=== PATIENT | male | born 1930 | race Caucasian/White ===

== ENCOUNTER 2017-10-19 15:11 | Inpatient (IN) | payer MEDICARE ==
[~2017-10-19 15:11] MED LIST: ISOVUE-370 76%-LOCM 1 ML ONE
[2017-10-19] MEDS ORDERED: Acetaminophen 325 MG TAB ONE ×2 (15:29→20:00)
[2017-10-19 15:43] LABS: Hemoglobin 13.9 g/dL (14.0-18.0); Mean Corpuscular HGB CONC 32.5 g/dL (32.0-36.0); Mean Corpuscular Hemoglobin 30.9 pg (27.0-31.0); Mean Platelet Volume 7.8 fL (7.4-10.4); Platelet Count 249 thou/uL (130-400); RBC Distribution Width 12.5 % (11.5-14.5); White Blood Cell (WBC) Count 7.3 thou/uL (4.8-10.8)
--- NOTE | 2017-10-19 15:55 | RAD ---
PORTABLE CHEST: Date: 10/19/17 PROVIDED CLINICAL HISTORY: Shortness of breath and pneumonia. FINDINGS: Comparison is made with the examination performed 07/09/13. Cardiac and mediastinal silhouette is unchanged in appearance. Left subclavian cardiac pacing device and median sternotomy changes are again seen. Patchy air space disease may be present at each lung ba se. No pleural fluid or pneumothorax apparent. IMPRESSION: Questioned patchy air space disease at each lung base. Correlate with concerns for pneumonia. POS: [facility]
[2017-10-19 16:03] LABS: ALT (SGPT) 16 U/L (8-55); AST (SGOT) 23 U/L (5-34); Albumin 3.8 g/dL (3.4-4.8); Alkaline Phosphatase 82 U/L (40-150); Anion Gap 14 mmol/L (10-20); BUN (Urea Nitrogen) 15 mg/dL (8.4-25.7); Bilirubin, Total 0.8 mg/dL (0.2-1.2); Calc. Creatinine Clearance 0 mL/min (70-130); Calcium 9.6 mg/dL (7.8-10.44); Carbon Dioxide 28 mmol/L (23-31); Chloride 96 mmol/L (98-107); Estimated GFR-MDRD 55; Globulin 3.5 g/dL (2.4-3.5); Glucose 126 mg/dL (83-110); Potassium 3.9 mmol/L (3.5-5.1); Protein, Total 7.3 g/dL (5.8-8.1); Sodium 134 mmol/L (136-145)
[2017-10-19 16:05] LABS: Band 21 % (5-11); Eosinophils 2 % (0-10); Lymphocytes 6 % (21-51); MDiff Complete? YES; Monocytes 10 % (0-10); Neutrophil 58 % (42-75); PLT Morphology Comment Appears Adequate; RBC Morphology Normal; Reactive Lymphocytes 3 % (0-10)
--- NOTE | 2017-10-19 16:40 | CT ---
CT ABDOMEN AND PELVIS WITH IV CONTRAST: History: Fever. Left lower quadrant pain. FINDINGS: There are dependent changes in the lung bases. No free air or free fluid or lymphadenopathy seen in t he abdomen or pelvis. No calcified gallstones are noted. There are calcified granulomas in the liver and spleen. There are cysts in the kidneys, the largest is on the left measuring 4.7 cm. Vascular darline cifications are present without evidence of abdominal dilatation of the abdominal aorta. A moderate s ized hiatal hernia is noted. There is colonic diverticulosis without evidence of diverticulitis. Ther e are vascular calcifications without evidence of aneurysmal dilatation of the abdominal aorta.There are degenerative changes in the spine. A normal appearing appendix is present. IMPRESSION: 1. Granulomas in the liver and spleen. 2. Moderate size hiatal hernia. 3. Renal cysts. 4. Colonic diverticulosis without evidence of diverticulitis. POS: [facility]
[2017-10-19 16:58] LABS: Bilirubin Negative (Negative); Blood, Urine Negative (Negative); Clarity CLEAR (Clear); Glucose, Urine (Dipstick) Negative (Negative); Leukocyte Negative (Negative); Nitrite Negative (Negative); Protein, Urine (Dipstick) 100 mg/dL (Neg-Trace); pH, Urine 7.5 (5.0-9.0)
[2017-10-19 17:00] LABS: Bacteria/HPF None Seen HPF (None Seen); Hyaline Casts/LPF 0-3 HYALINE CAST LPF (0-3 Hyaline); RBC/HPF 0-3 HPF (0-3); Squamous Epithelial None Seen HPF (0-3); WBC/HPF 0-3 HPF (0-3)
[2017-10-19 17:02] LABS: Specific Gravity, Urine 1.047 (1.002-1.036)
[2017-10-19] MEDS ORDERED: Cefepime 2 GM/10 ML SYR ONE (17:13)
[2017-10-19 22:14] VITALS: BMI 31.6
[2017-10-19] MEDS ORDERED: Ondansetron ODT 4 MG TAB SL PRN (22:14)
[2017-10-19] MEDS ORDERED: Ondansetron HCl/PF 4 MG/2 ML Vial IVP PRN (22:14)
[2017-10-19] MEDS ORDERED: Benzonatate 100 MG CAP PO PRN (23:33)
[2017-10-19] MEDS ORDERED: Acetaminophen 325 MG TAB PO PRN (23:33)
[2017-10-19] MEDS ORDERED: guaiFENesin ER 600 MG TAB PO SCH (23:45)
[2017-10-20] MEDS ORDERED: Cefepime 1 GM in Syringe 10 ML SLOW IVP SCH (02:00)
[2017-10-20 05:01] LABS: Anion Gap 11 mmol/L (10-20); BUN (Urea Nitrogen) 15 mg/dL (8.4-25.7); Calc. Creatinine Clearance 58 mL/min (70-130); Calcium 8.9 mg/dL (7.8-10.44); Carbon Dioxide 28 mmol/L (23-31); Chloride 100 mmol/L (98-107); Estimated GFR-MDRD 73; Glucose 98 mg/dL (83-110); Potassium 3.6 mmol/L (3.5-5.1); Sodium 135 mmol/L (136-145)
[2017-10-20 05:10] LABS: Band 12 % (5-11); Eosinophils 3 % (0-10); Hemoglobin 12.5 g/dL (14.0-18.0); Lymphocytes 21 % (21-51); MDiff Complete? YES; Mean Corpuscular HGB CONC 32.3 g/dL (32.0-36.0); Mean Platelet Volume 7.9 fL (7.4-10.4); Metamyelocyte 1 % (0-0); Monocytes 6 % (0-10); Neutrophil 57 % (42-75); PLT Morphology Comment Appears Adequate; Platelet Count 197 thou/uL (130-400); RBC Distribution Width 12.6 % (11.5-14.5); Red Blood Cell (RBC) Count 4.02 mill/uL (4.70-6.10); White Blood Cell (WBC) Count 6.2 thou/uL (4.8-10.8)
--- NOTE | 2017-10-20 08:10 | HP ---
CHIEF COMPLAINT: Pneumonia with hypoxia. HISTORY OF PRESENT ILLNESS: The patient is an 87-year-old male who lives at home with sitters and zuleta s dementia. They noted that 1 week ago he was diagnosed with pneumonia which may have actually just been exacerbation of COPD because his only treatment at that time was prednisone. He did seem to imp rove until just recently when he began to have fever up to 102.8 at which time he also had some abdom inal pain. His shortness of breath and confusion were worse than usual and he was brought to the [facility] room for further evaluation. There he was noted to have bilateral infiltrates and his heart r ate was elevated, so he was admitted for further treatment. He does have an occasional cough, especi ally if he takes a deep breath, but denies hemoptysis or chest pain. REVIEW OF SYSTEMS: Per other historians say that he has not had any chills or malaise, but has had a fever. HEENT: There are no eye complaints with pain or discharge. No complaints of nose or oral lesions. NECK: Without pain or limited range of motion. CARDIOVASCULAR: Denies any chest pain or palpitations. RESPIRATORY: Respiratory ahn, he does have occasional cough, he is dyspneic. GI: He has some vague abdominal pain with decreased appetite. No vomiting or diarrhea noted. : No burning on urination, frequency or blood in urine or stool. MUSCULOSKELETAL: Denies any recent falls, injuries or pain in his joints. SKIN: No new lesions or rashes. NEUROLOGIC: His mentation has slightly worsened since this recent illness. His overall confusion zuleta s improved since starting on Namenda along with the Aricept. PAST MEDICAL HISTORY: Significant for hypertension, dementia, Alzheimer's type, COPD, dyslipidemia, GERD, carotid artery stenosis, chronic back pain. He has a history of prostate carcinoma. He has zuleta d sick sinus syndrome in the past with cardiac syncope and history of coronary artery disease. PAST SURGICAL HISTORY: Includes right carotid endarterectomy, 2 vessel coronary artery bypass graft, colonoscopy in 2005, left index finger amputation. PSYCHIATRIC HISTORY: There is psychiatric history with the onset of his Alzheimer dementia. SOCIAL HISTORY: Former smoker, has not smoked in some time, but he did smoke for 70 years. Lives wi th a family member. Recently discharged from [facility]. ALLERGIES: He has no known drug allergies. CURRENT MEDICATIONS: Prednisone 5 mg daily, Namenda 10 mg b.i.d., amlodipine 10 mg daily. PHYSICAL EXAMINATION: VITAL SIGNS: Blood pressure 177/101, pulse 112, respirations 32, temperature 102.8. Pain scale repo rts is 0 with O2 sat at 90 on 2 liters. GENERAL: This is a lethargic male who will respond. HEENT: Normocephalic and atraumatic. Pupils equal, round, and reactive to light with arcus senilis bilaterally. Nonicteric. Pupils with diminished reactivity at 2 mm bilaterally. Extraocular muscle s are intact. Nose clear. Pharynx clear. Membranes moist. NECK: Supple, trachea midline, no audible bruits. CHEST: Chest with faint rales bilaterally. HEART: Regular rate and rhythm without murmur. ABDOMEN: Distended due to air swallowing. Unable to appreciate organomegaly, it is tympanic. Nonte nder at the time. : Deferred. BACK: Normal range of motion. EXTREMITIES: Upper extremities without clubbing, cyanosis, or edema. Normal range of motion. Lower extremities also without clubbing, cyanosis, or edema. Sensation intact. Posterior tibial pulse no rmal. Pedal pulses are normal. NEURO: Neurologically, he is oriented to person and place, confused on time. Speech is clear. Gait and cerebellar function untested. On his mental status there is memory confusion. SKIN: No acute rashes or lesions. Good turgor. EKG shows sinus tachycardia with a pattern for left pulmonary artery disease. WBC 7.3, hemoglobin 13.9, hematocrit 42.8 with platelets at 249. Sodium 134, potassium 3.9, chloride 96, CO2 is 28, BUN 15, creatinine 1.24 with a GFR of 55, glucose 126. Liver functions normal. Urin alysis is unremarkable. Chest x-ray shows the aforementioned bilateral fluffy infiltrates. ASSESSMENT: 1. Bilateral healthcare associated pneumonia. 2. Alzheimer dementia. 3. History of coronary artery disease. 4. History of prostate cancer. 5. Hypertension. PLAN: The plan will be to resume normal medications, neb treatments q.i.d. and p.r.n., IV antibiotic s and serial reevaluation.
[2017-10-20] MEDS: guaiFENesin ER 600 MG TAB PO SCH ×2 (09:42→20:14)
[2017-10-20] MEDS: Amlodipine 10 MG TAB PO SCH (09:42)
[2017-10-20] MEDS: Cefepime 2 GM, Syringe 2.5 ML in Sodium Chloride 0.9% 10 ML SLOW IVP SCH ×2 (10:21→18:05)
[2017-10-20] MEDS: Donepezil HCl 10 MG TAB PO SCH (11:58)
[2017-10-20] MEDS: Atorvastatin Calcium 10 MG TAB PO SCH (20:15)
[2017-10-21] MEDS: Cefepime 2 GM, Syringe 2.5 ML in Sodium Chloride 0.9% 10 ML SLOW IVP SCH ×3 (01:57→18:36)
[2017-10-21 04:29] LABS: #Eosinphils 0.1 thou/uL (0.0-0.7); #Lymphocytes 0.6 thou/uL (1.20-3.40); #Neutrophils 4.6 thou/uL (1.40-6.50); %Basophils 0.7 % (0.0-1.0); %Eosinophils 2.4 % (0.0-10.0); %Lymphocytes 9.5 % (21.0-51.0); %Monocytes 14.9 % (0.0-10.0); %Neutrophils 72.5 % (42.0-75.0); Hemoglobin 12.2 g/dL (14.0-18.0); Mean Corpuscular HGB CONC 32.5 g/dL (32.0-36.0); Mean Corpuscular Volume 98.5 fl (80.0-94.0); Mean Platelet Volume 8.1 fL (7.4-10.4); Platelet Count 217 thou/uL (130-400); RBC Distribution Width 12.5 % (11.5-14.5); Red Blood Cell (RBC) Count 3.82 mill/uL (4.70-6.10); White Blood Cell (WBC) Count 6.4 thou/uL (4.8-10.8)
[2017-10-21 04:38] LABS: Anion Gap 14 mmol/L (10-20); BUN (Urea Nitrogen) 20 mg/dL (8.4-25.7); Calc. Creatinine Clearance 55 mL/min (70-130); Calcium 8.9 mg/dL (7.8-10.44); Carbon Dioxide 25 mmol/L (23-31); Chloride 102 mmol/L (98-107); Estimated GFR-MDRD 68; Glucose 107 mg/dL (83-110); Potassium 3.7 mmol/L (3.5-5.1); Sodium 137 mmol/L (136-145)
--- NOTE | 2017-10-21 08:28 | PRG ---
DATE OF SERVICE: 10/21/2017 SCOTTY Myrick-Tammy dictating for Shane Baker M.D. According to the sitter, the patient did not sleep at all last night. He has been scratching his arm s a lot. He will not leave his oxygen on. PHYSICAL EXAMINATION: GENERAL: Upon evaluation, he is awake and he is confused. VITAL SIGNS: His blood pressure is 133/60, pulse 100, respirations 18, he is afebrile. NECK: Supple with no JVP or carotid bruit. Carotids with good upstroke, no thyromegaly. COR: Regular rate and rhythm. CHEST: Scattered rhonchi. No wheezing. ABDOMEN: Soft, distended with normoactive bowel sounds. There is no bruit or organomegaly. EXTREMITIES: No edema or cyanosis. Palpable pedal pulses. SKIN: There is no evidence of ulcer, lesion, or rash. NEUROLOGIC: He is awake, but confused. LABORATORY DATA: CBC showed a white blood cell to be 6.4, H and H 12.2 and 37.6, platelet count is n ormal. CMP is normal. Urine is normal. ASSESSMENT: 1. Chronic obstructive pulmonary disease. 2. Pneumonia. 3. Dementia. 4. Urticaria. PLAN: We will give Benadryl p.r.n. for itching. We will also start Solu-Medrol 40 mg IV q.12 hours and follow up with CBC, CMP, and chest x-ray in the morning.
[2017-10-21] MEDS: Amlodipine 10 MG TAB PO SCH (10:08)
[2017-10-21] MEDS: diphenhydrAMINE 25 MG CAP PO PRN ×2 (10:08→20:01)
[2017-10-21] MEDS: guaiFENesin ER 600 MG TAB PO SCH ×3 (10:08→20:02)
[2017-10-21] MEDS: Donepezil HCl 10 MG TAB PO SCH (12:45)
--- NOTE | 2017-10-21 14:30 | PQF ---
CLINICAL DOCUMENTATION IMPROVEMENT CLARIFICATION FORM: ICD-10 Updated PLEASE DO AN ADDENDUM TO THE PROGRESS NOTE WITH ANY DOCUMENTATION UPDATES OR ADDITIONS AND CARRY THROUGH TO DC SUMMARY. THANK YOU. DATE: 10/21/17 ATTN: Dr. Baker Please exercise your independent, professional judgment in responding to the clarification form. Clinical indicators are provided on the bottom of this form for your review Please check appropriate box(s): [ X ] Aspiration Pneumonia [ ] Empirically treating Gram Negative Pneumonia [ ] Empirically treating Anaerobic Pneumonia [ ] Pneumonia secondary to (specify organism / underlying disease) [ ] Simple Pneumonia (community acquired - nosocomial) [ ] Pneumonia of unknown etiology [ X ] Other diagnosis ___HEALTH CARE ASSO [ ] Unable to determine In addition, please specify: Present on Admission (POA): [ X ] Yes [ ] No [ ] Unable to determine For continuity of documentation, please document condition throughout progress notes and discharge summary. Thank You. CLINICAL INDICATORS - SIGNS / SYMPTOMS / LABS H&P: BP 177/101, PULSE 112, RESP. 32, [id number], O2 SAT @ 90 ON 2 LITERS. CHEST X-RAY SHOWS THE AFOREMENTIONED BILATERAL FLUFFY INFILTRATES BILATERAL HEALTHCARE ASSOCIATED PNEUMONIA. RISKS: H&P: HYPERTENSION, DEMENTIA, ALZHEIMER'S TYPE, COPD. CAD. RECENTLY DISCHARGED FROM [facility]. TREATMENT: ORDER 10/20: CEFEPIME 2 GM IV , ORDER 3: LEVAQUIN 500MG IV Q 24 HR ORDER 10/20: RESP: O2 TO KEEP SATS 92% Thank you, Shirlene (This form is maintained as a part of the permanent medical record) 2015 [employer]. All Rights Reserved Shirlene Branch RN, BSN [email or web address] Office: [phone] [facility]
--- NOTE | 2017-10-21 15:02 | PQF ---
CLINICAL DOCUMENTATION IMPROVEMENT CLARIFICATION FORM: ICD-10 Updated PLEASE DO AN ADDENDUM TO THE PROGRESS NOTE WITH ANY DOCUMENTATION UPDATES OR ADDITIONS AND CARRY THROUGH TO DC SUMMARY. THANK YOU. DATE: 10/21/17 ATTN: Dr. Baker Please exercise your independent, professional judgment in responding to the clarification form. Clinical indicators are provided on the bottom of this form for your review Please check appropriate box(s): [ ] Acute Respiratory Failure: [ ] with Hypoxia [ ] with Hypercapnia [ ] Acute On Chronic Respiratory Failure: [ ] with Hypoxia [ ] with Hypercapnia [ x ] Acute Respiratory Failure due to: (etiology) __healthcare asso pneumonia__ [ ] Chronic Respiratory Failure only [ ] with Hypoxia [ ] with Hypercapnia [ ] Other diagnosis [ ] Unable to determine In addition, please specify: Present on Admission (POA): [ x ] Yes [ ] No [ ] Unable to determine For continuity of documentation, please document condition throughout progress notes and discharge summary. Thank You. CLINICAL INDICATORS - SIGNS / SYMPTOMS / LABS ER RECORD: RESP 32, O2 SAT 90 ON 2L OXYGEN, BP 177/101, P 112 RESP 28, O2 SAT 95 ON 2L OXYGEN RESPIRATORY THERAPIST NOTES 10/20: NEB [place] @ 0721: O2 SAT 92 NC 2L NEB [place] @ 1914: O2 SAT 91 ROOM AIR NURSING VS 10/21 @ 0800: O2 SAT 90 NC 2L RISKS: H&P: AGE 87. HYPERTENSION, DEMENTIA, ALZHEIMER'S TYPE, COPD. CAD. BILATERAL HEALTHCARE ASSOCIATED PNEUMONIA. TREATMENT: ORDER 10/19: DUONEB Q4 HR - RT ORDER 10/20: RESP: O2 TO KEEP SATS 92% ORDER 10/21: SOLU-MEDROL 40 MG IV Thank you, Shirlene (This form is maintained as a part of the permanent medical record) 2015 [employer]. All Rights Reserved Shirlene Branch RN, BSN [email or web address] Office: [phone] [facility]
[2017-10-21] MEDS ORDERED: Polyethylene Glycol 3350 17 GM Packet PO PRN (16:51)
[2017-10-21] MEDS: Atorvastatin Calcium 10 MG TAB PO SCH (20:02)
[2017-10-22] MEDS: Cefepime 2 GM, Syringe 2.5 ML in Sodium Chloride 0.9% 10 ML SLOW IVP SCH (01:06)
[2017-10-22 05:29] LABS: Hemoglobin 11.9 g/dL (14.0-18.0); Red Blood Cell (RBC) Count 3.73 mill/uL (4.70-6.10); White Blood Cell (WBC) Count 6.2 thou/uL (4.8-10.8)
[2017-10-22 05:30] LABS: #Basophils 0.1 thou/uL (0.0-0.2); #Lymphocytes 0.3 thou/uL (1.20-3.40); #Monocytes 0.1 thou/uL (0.11-0.59); #Neutrophils 5.7 thou/uL (1.40-6.50); %Basophils 1.5 % (0.0-1.0); %Eosinophils 0.2 % (0.0-10.0); %Lymphocytes 4.4 % (21.0-51.0); %Monocytes 2.1 % (0.0-10.0); %Neutrophils 91.8 % (42.0-75.0); Mean Corpuscular HGB CONC 32.2 g/dL (32.0-36.0); Mean Corpuscular Hemoglobin 31.8 pg (27.0-31.0); Mean Corpuscular Volume 98.6 fl (80.0-94.0); Mean Platelet Volume 8.5 fL (7.4-10.4); Platelet Count 226 thou/uL (130-400); RBC Distribution Width 12.6 % (11.5-14.5)
[2017-10-22 05:56] LABS: ALT (SGPT) 19 U/L (8-55); AST (SGOT) 27 U/L (5-34); Albumin 3.3 g/dL (3.4-4.8); Alkaline Phosphatase 72 U/L (40-150); Anion Gap 15 mmol/L (10-20); BUN (Urea Nitrogen) 29 mg/dL (8.4-25.7); Bilirubin, Total 0.3 mg/dL (0.2-1.2); Calc. Creatinine Clearance 54 mL/min (70-130); Calcium 9.4 mg/dL (7.8-10.44); Carbon Dioxide 24 mmol/L (23-31); Chloride 103 mmol/L (98-107); Estimated GFR-MDRD 67; Globulin 3.2 g/dL (2.4-3.5); Glucose 172 mg/dL (83-110); Potassium 4.6 mmol/L (3.5-5.1); Protein, Total 6.5 g/dL (5.8-8.1); Sodium 137 mmol/L (136-145)
[2017-10-22] MEDS: predniSONE 20 MG TAB PO SCH ×2 (08:30→16:03)
[2017-10-22] MEDS: Cefdinir 300 MG CAP PO SCH ×2 (08:30→21:05)
[2017-10-22] MEDS: Amlodipine 10 MG TAB PO SCH (08:30)
[2017-10-22] MEDS: guaiFENesin ER 600 MG TAB PO SCH ×2 (08:31→21:06)
--- NOTE | 2017-10-22 09:07 | RAD ---
CHEST TWO VIEWS: History: Pneumonia. Comparison: 10-19-17 FINDINGS: Cardiac silhouette and pulmonary vasculature are unremarkable. Patchy bibasilar infiltrates have impr abhijeet. Mediastinum is midline with aortic calcification, post-operative changes, dual-lead left subcla vian cardiac electronic device, and hiatal hernia. Lungs are hyperinflated. IMPRESSION: 1. Improved aeration of the lung bases with near complete resolution of the infiltrates. No new abnor malities are demonstrated. 2. Chronic type findings are stable. POS: [facility]
[2017-10-22] MEDS: Donepezil HCl 10 MG TAB PO SCH (11:12)
[2017-10-22] MEDS: Atorvastatin Calcium 10 MG TAB PO SCH (21:05)
[2017-10-22] MEDS: diphenhydrAMINE 25 MG CAP PO PRN (22:46)
[2017-10-23] MEDS ORDERED: Zolpidem Tartrate 5 MG TAB PO SCH (00:15)
[2017-10-23 05:49] LABS: Anion Gap 13 mmol/L (10-20); BUN (Urea Nitrogen) 44 mg/dL (8.4-25.7); Calc. Creatinine Clearance 56 mL/min (70-130); Calcium 9.6 mg/dL (7.8-10.44); Carbon Dioxide 26 mmol/L (23-31); Chloride 103 mmol/L (98-107); Estimated GFR-MDRD 70; Glucose 131 mg/dL (83-110); Potassium 4.5 mmol/L (3.5-5.1); Sodium 137 mmol/L (136-145)
[2017-10-23 06:45] LABS: Band 14 % (5-11); Hemoglobin 11.3 g/dL (14.0-18.0); Lymphocytes 5 % (21-51); MDiff Complete? YES; Mean Corpuscular HGB CONC 31.1 g/dL (32.0-36.0); Mean Corpuscular Volume 96.4 fl (80.0-94.0); Mean Platelet Volume 8.2 fL (7.4-10.4); Monocytes 12 % (0-10); Neutrophil 69 % (42-75); Platelet Count 231 thou/uL (130-400); RBC Distribution Width 12.5 % (11.5-14.5); Red Blood Cell (RBC) Count 3.78 mill/uL (4.70-6.10); White Blood Cell (WBC) Count 13.3 thou/uL (4.8-10.8)
[2017-10-23] MEDS: Amlodipine 10 MG TAB PO SCH (09:43)
[2017-10-23] MEDS: predniSONE 5 MG TAB PO SCH ×2 (09:45→21:46)
[2017-10-23] MEDS: predniSONE 20 MG TAB PO SCH ×2 (09:45→17:12)
[2017-10-23] MEDS: guaiFENesin ER 600 MG TAB PO SCH ×2 (09:45→21:46)
[2017-10-23] MEDS: Cefepime 1 GM, Admixture Fee 1 EACH in Sodium Chloride 0.9% 10 ML SLOW IVP SCH ×2 (09:50→17:12)
[2017-10-23] MEDS: Donepezil HCl 10 MG TAB PO SCH (13:03)
[2017-10-23] MEDS: Atorvastatin Calcium 10 MG TAB PO SCH (21:46)
[2017-10-24] MEDS: Cefepime 1 GM, Admixture Fee 1 EACH in Sodium Chloride 0.9% 10 ML SLOW IVP SCH ×3 (00:34→16:30)
[2017-10-24 05:18] LABS: Anion Gap 13 mmol/L (10-20); BUN (Urea Nitrogen) 45 mg/dL (8.4-25.7); Calc. Creatinine Clearance 49 mL/min (70-130); Calcium 9.6 mg/dL (7.8-10.44); Carbon Dioxide 27 mmol/L (23-31); Chloride 103 mmol/L (98-107); Estimated GFR-MDRD 64; Glucose 147 mg/dL (83-110); Potassium 4.5 mmol/L (3.5-5.1); Sodium 138 mmol/L (136-145)
[2017-10-24 05:25] LABS: Band 2 % (5-11); Hemoglobin 11.2 g/dL (14.0-18.0); Lymphocytes 5 % (21-51); MDiff Complete? YES; Mean Corpuscular HGB CONC 32.4 g/dL (32.0-36.0); Mean Corpuscular Volume 95.9 fl (80.0-94.0); Mean Platelet Volume 8.3 fL (7.4-10.4); Metamyelocyte 1 % (0-0); Monocytes 6 % (0-10); Myelocyte 3 % (0-0); Neutrophil 83 % (42-75); Platelet Count 223 thou/uL (130-400); RBC Distribution Width 12.6 % (11.5-14.5); Red Blood Cell (RBC) Count 3.61 mill/uL (4.70-6.10); White Blood Cell (WBC) Count 13.8 thou/uL (4.8-10.8)
[2017-10-24] MEDS: Amlodipine 10 MG TAB PO SCH (08:41)
[2017-10-24] MEDS: guaiFENesin ER 600 MG TAB PO SCH ×2 (08:41→20:17)
[2017-10-24] MEDS: predniSONE 5 MG TAB PO SCH ×2 (08:41→20:17)
[2017-10-24] MEDS: predniSONE 20 MG TAB PO SCH ×2 (08:41→16:30)
[2017-10-24] MEDS: Donepezil HCl 10 MG TAB PO SCH (11:53)
--- NOTE | 2017-10-24 13:21 | RAD ---
CHEST TWO VIEWS: COMPARISON: 10/22/2017 FINDINGS: Heart size is slightly enlarged. There are postop sternotomy changes. A pacemaker is present. Heat Pump Installer rich lung changes are seen. No focal infiltrates. IMPRESSION: Mild cardiomegaly with chronic lung change. No acute process. POS: [facility]
[2017-10-24] MEDS: Atorvastatin Calcium 10 MG TAB PO SCH (20:17)
[2017-10-25] MEDS: Cefepime 1 GM, Admixture Fee 1 EACH in Sodium Chloride 0.9% 10 ML SLOW IVP SCH ×2 (00:12→08:31)
[2017-10-25 05:15] LABS: Anion Gap 13 mmol/L (10-20); BUN (Urea Nitrogen) 44 mg/dL (8.4-25.7); Calc. Creatinine Clearance 52 mL/min (70-130); Calcium 9.6 mg/dL (7.8-10.44); Carbon Dioxide 28 mmol/L (23-31); Chloride 103 mmol/L (98-107); Estimated GFR-MDRD 68; Glucose 160 mg/dL (83-110); Potassium 4.5 mmol/L (3.5-5.1); Sodium 139 mmol/L (136-145)
[2017-10-25 06:42] LABS: Band 7 % (5-11); Hemoglobin 11.7 g/dL (14.0-18.0); Lymphocytes 12 % (21-51); MDiff Complete? YES; Mean Corpuscular HGB CONC 32.2 g/dL (32.0-36.0); Mean Corpuscular Hemoglobin 31.5 pg (27.0-31.0); Mean Corpuscular Volume 97.8 fl (80.0-94.0); Mean Platelet Volume 8.4 fL (7.4-10.4); Metamyelocyte 1 % (0-0); Monocytes 5 % (0-10); Myelocyte 2 % (0-0); Neutrophil 73 % (42-75); Platelet Count 231 thou/uL (130-400); RBC Distribution Width 12.7 % (11.5-14.5); White Blood Cell (WBC) Count 15.3 thou/uL (4.8-10.8)
[2017-10-25] MEDS: predniSONE 5 MG TAB PO SCH (08:31)
[2017-10-25] MEDS: Amlodipine 10 MG TAB PO SCH (08:31)
[2017-10-25] MEDS: guaiFENesin ER 600 MG TAB PO SCH (08:32)
[2017-10-25] MEDS: predniSONE 20 MG TAB PO SCH (08:32)
--- NOTE | 2017-10-25 09:46 | PDOC.PN ---
- Subjective Encounter Start Date: 10/25/17 Encounter Start Time: 10:50 Subjective: Patient feeling better. Still with some chest congestion, but breathin -: fine on his home O2. - Objective MAR Reviewed: Yes Vital Signs & Weight: Vital Signs (12 hours) Temp Pulse Resp BP BP Pulse Ox 10/25/17 08:31 91 131/65 10/25/17 08:00 98 F 91 16 131/65 94 L 10/25/17 07:49 97 10/25/17 07:44 89 20 97 10/25/17 04:34 98.0 F 53 L 18 177/77 H 93 L 10/25/17 03:04 93 L 10/25/17 00:10 98.6 F 106 H 18 141/86 H 94 L 10/24/17 22:05 16 Weight Weight 163 lb 12.8 oz I&O: 10/24/17 10/25/17 10/26/17 06:59 06:59 06:59 Intake Total 1140 1075 Balance 1140 1075 Result Diagrams: 10/25/17 04:31 10/25/17 04:31 Phys Exam - Physical Examination Constitutional: NAD HEENT: moist MMs Respiratory: no wheezing, no rales, no rhonchi some upper airway congestive noises, no increased WOB, good air mvmnt Cardiovascular: RRR Gastrointestinal: soft, positive bowel sounds Musculoskeletal: no edema Psychiatric: normal affect Dx/Plan (1) Pneumonia Code(s): J18.9 - PNEUMONIA, UNSPECIFIED ORGANISM Status: Resolved Comment: CXR infiltrates resolved, suspect possibility of atelecasis as source. (2) COPD exacerbation Code(s): J44.1 - CHRONIC OBSTRUCTIVE PULMONARY DISEASE W (ACUTE) EXACERBATION Status: Acute Comment: Improved with IV steroids, no on po (3) Leukocytosis Code(s): D72.829 - ELEVATED WHITE BLOOD CELL COUNT, UNSPECIFIED Status: Acute Comment: bandemia resolved, spike appears to coincide with increased dose of steroids. No fever. Blood cultures negative. - Plan cont current plan of care, continue antibiotics Can d/c home on oral Levaquin and prednisone * . - Discharge Day Encounter end time: 11:05
[2017-10-25 11:47] VITALS: BP 137/63; TEMP 97.9
[2017-10-25] MEDS: Donepezil HCl 10 MG TAB PO SCH (11:57)
--- NOTE | 2017-10-25 14:22 | DIS ---
PRIMARY CARE PHYSICIAN: Dr. Shane Baker. ADMISSION DIAGNOSES: 1. Bilateral healthcare-associated pneumonia. 2. Alzheimer dementia. 3. Coronary artery disease. 4. History of prostate cancer. 5. Hypertension. DISCHARGE DIAGNOSES: 1. Pneumonia, resolved. 2. Chronic obstructive pulmonary disease exacerbation. 3. Leukocytosis secondary to steroids. 4. Alzheimer's dementia. 5. History of coronary artery disease. 6. History of prostate cancer. 7. Hypertension. PROCEDURES: CT of the abdomen and pelvis with contrast showing granulomas of the liver and spleen, m oderate-size hiatal hernia, renal cysts and colonic diverticulosis without any evidence of diverticul itis. CONSULTATIONS: None. SUMMARY OF HOSPITAL COURSE: This is an 87-year-old white male with history of dementia, who lives at home with sitters. He was admitted by Dr. Baker on 10/19/2017 after developing a fever at home concepción g with evidence of worsening of his COPD. He was thought to have bilateral mild lower lung infiltrat es on chest x-ray, was admitted to the hospital and given IV antibiotics. The patient improved durin g his hospitalization. He did have his steroids increased a couple of days into the hospitalization. At that point, his white cell count did start to elevate, initially had a bandemia, but bandemia le veled out and his white cell count was stable at 15 the day of discharge. Patient's blood cultures c makayla back negative. Urine culture was negative. Influenza A and B were negative. He is being discha rged home. DISCHARGE MANAGEMENT: Discharged home back with his previous home health. ACTIVITY: As tolerated. DIET: Healthy heart, low sodium diet. He is to continue his home oxygen at 2 liters via nasal cannula. The patient is to follow up with Dr Vince Baker in the next 3-5 days. DISCHARGE MEDICATIONS: 1. Tessalon Perles 100 mg every 6 hours as needed for cough, 30 caps dispensed. 2. Guaifenesin ER 1200 mg q.12 hours as needed for chest congestion, 60 tablets dispensed. 3. Levofloxacin 500 mg p.o. daily for another 2 days, 2 tablets dispensed. 4. Prednisone 10 mg p.o. twice a day for next 3 days and then he is to go back to his home dose of 5 mg daily. The patient is to resume all of his other home medications as well. 5. Amlodipine 10 mg daily. 6. Aspirin 81 mg daily. 7. Aricept 10 mg daily. 8. Milk of magnesia as needed. 9. Namenda 10 mg twice a day. 10. Centrum Silver 1 tablet daily. 11. MiraLax 119 grams p.o. daily. 12. Zocor 20 mg at night. 13. Symbicort 160/4.5 one puff twice a day. 14. Carvedilol 3.125 mg twice a day.
== END 2017-10-25 13:12 | disposition home health service (06) | DRG 177 ==
LOC: ERS 15:11 → 2SE 20:00
PROVIDERS: ADMIT Specialist; ATTEND Specialist
DX: J69.0 Pneumonitis due to inhalation of food and vomit (principal); J96.00 Acute respiratory failure, unspecified whether with hypoxia or hypercapnia; G30.9 Alzheimer's disease, unspecified; F02.80 Dementia in other diseases classified elsewhere, unspecified severity, without behavioral disturbance, psychotic disturbance, mood disturbance, and anxiety; Z87.891 Personal history of nicotine dependence; J44.9 Chronic obstructive pulmonary disease, unspecified; E78.5 Hyperlipidemia, unspecified; K21.9 Gastro-esophageal reflux disease without esophagitis; I25.10 Atherosclerotic heart disease of native coronary artery without angina pectoris; Z95.1 Presence of aortocoronary bypass graft; L50.9 Urticaria, unspecified
CPT/HCPCS: 36415; 71045; 71046; 74177; 80048; 80053; 81003; 81015; 83605; 85025; 87040; 87086; 87804; 93005; 94640; 94760; 96365; 96366; 96374; A4216; J0692; J1956; J2920; J7506; J7620

== ENCOUNTER 2017-11-20 19:07 | Emergency (ER) | payer MEDICARE ==
[2017-11-20 19:43] LABS: #Basophils 0.1 thou/uL (0.0-0.2); #Eosinphils 0.3 thou/uL (0.0-0.7); #Lymphocytes 2.2 thou/uL (1.20-3.40); #Monocytes 0.9 thou/uL (0.11-0.59); #Neutrophils 5.2 thou/uL (1.40-6.50); %Basophils 0.6 % (0.0-1.0); %Eosinophils 3.8 % (0.0-10.0); %Monocytes 10.5 % (0.0-10.0); %Neutrophils 60.2 % (42.0-75.0); Hemoglobin 11.5 g/dL (14.0-18.0); Mean Corpuscular Hemoglobin 29.2 pg (27.0-31.0); Mean Corpuscular Volume 94.3 fl (80.0-94.0); Mean Platelet Volume 7.5 fL (7.4-10.4); Platelet Count 294 thou/uL (130-400); RBC Distribution Width 13.6 % (11.5-14.5); Red Blood Cell (RBC) Count 3.94 mill/uL (4.70-6.10); White Blood Cell (WBC) Count 8.7 thou/uL (4.8-10.8)
[2017-11-20 20:01] LABS: Anion Gap 13 mmol/L (10-20); BUN (Urea Nitrogen) 19 mg/dL (8.4-25.7); Calc. Creatinine Clearance 0 mL/min (70-130); Calcium 8.9 mg/dL (7.8-10.44); Carbon Dioxide 28 mmol/L (23-31); Chloride 103 mmol/L (98-107); Estimated GFR-MDRD 64; Glucose 124 mg/dL (83-110); Potassium 3.8 mmol/L (3.5-5.1); Sodium 140 mmol/L (136-145)
[2017-11-20] MEDS ORDERED: methylPREDNISolone Sod Succ/PF 125 MG/2 ML VIAL ONE (20:14)
[2017-11-20 20:16] LABS: CKMB 0.6 ng/mL (0-6.6); Troponin I Less than 0.010 ng/mL (< 0.028)
[2017-11-20] MEDS ORDERED: Albuterol Sulfate 2.5 mg/3 ml Neb ONE (20:17)
--- NOTE | 2017-11-20 21:02 | RAD ---
FRONTAL VIEW CHEST: 11/20/17 COMPARISON: 10/24/17 CLINICAL INDICATION: Dyspnea. FINDINGS: There is prominent size of the cardiac silhouette, some of which is due to portable technique and ass ociated accentuation. Left sided cardiac pacing device remains. Redemonstration of postoperative find ings of sternotomy. No new consolidation or significant effusion identified. Osseous degenerative jyoti nge present. IMPRESSION: Prominent cardiac silhouette indicating CHF. Correlate clinically. POS: [facility]
[2017-11-21 09:52] LABS: Base Excess-Venous 5.3 mmol/L (0 (+/- 2.5)); Bicarbonate (HCO3v) 31.8 mmol/L (1.0-85.0); CO2 Tension (PvCO2) 54.2 mmHg (41.0-51.0); Calcium, Ionized 1.13 mmol/L (1.12-1.32); Hemoglobin - Calc 12.3 g/dL (12.0-18.0); O2 Tension (PvO2) 31.7 mmHg (35.0-45.0); Potassium 3.4 mmol/L (3.4-4.7); T. Carbon Dioxide 33.5 mmol/L (1.0-85.0); pH (Venous) 7.376 (7.35-7.45); vO2 Saturation-calc 57.8 % (94-98)
== END 2017-11-20 21:00 | disposition home or self-care (01) ==
LOC: ERS 19:07
DX: J44.1 Chronic obstructive pulmonary disease with (acute) exacerbation (principal); I10 Essential (primary) hypertension; G30.9 Alzheimer's disease, unspecified; F02.80 Dementia in other diseases classified elsewhere, unspecified severity, without behavioral disturbance, psychotic disturbance, mood disturbance, and anxiety; Z87.891 Personal history of nicotine dependence; Z79.52 Long term (current) use of systemic steroids; Z79.899 Other long term (current) drug therapy
CPT/HCPCS: 36415; 71045; 80048; 82330; 82435; 82553; 82803; 84132; 84295; 84484; 85014; 85025; 93005; 94640; 94760; 96374; J2930; J7611

== ENCOUNTER 2018-01-17 15:15 | Inpatient (IN) | payer MEDICARE ==
[2018-01-17] MEDS ORDERED: methylPREDNISolone Sod Succ/PF 125 MG/2 ML VIAL ONE (15:50)
[2018-01-17 15:54] LABS: Hemoglobin 11.6 g/dL (14.0-18.0); Mean Corpuscular HGB CONC 31.9 g/dL (32.0-36.0); Mean Corpuscular Hemoglobin 26.6 pg (27.0-31.0); Mean Corpuscular Volume 83.1 fl (80.0-94.0); Mean Platelet Volume 8.3 fL (7.4-10.4); Platelet Count 304 thou/uL (130-400); RBC Distribution Width 16.1 % (11.5-14.5); Red Blood Cell (RBC) Count 4.36 mill/uL (4.70-6.10); White Blood Cell (WBC) Count 26.2 thou/uL (4.8-10.8)
--- NOTE | 2018-01-17 15:59 | RAD ---
CHEST ONE VIEW: 01/17/18 HISTORY: Cough. COMPARISON: Chest radiograph 11/20/17. FINDINGS: There is a mild pulmonary venous congestion. Numerous calcified granulomas. No pneumothorax or large effusion. There is a left retrocardiac opacity which may reflect a sliding hiatal hernia. IMPRESSION: 1. Cardiomegaly with mild pulmonary venous congestion. 2. Sliding hiatal hernia. POS: [facility]
[2018-01-17 16:15] LABS: Anisocytosis SLIGHT = 6-15 cells (100X) (0-5/hpf); Lymphocytes 6 % (21-51); MDiff Complete? YES; Monocytes 2 % (0-10); Neutrophil 92 % (42-75); Ovalocytes SLIGHT = 2-5 cells (100X) (0-1/hpf); PLT Morphology Comment Appears Adequate; Polychromasia SLIGHT = 2-3 cells (100X) (0-2/hpf)
[2018-01-17 16:17] LABS: ALT (SGPT) 9 U/L (8-55); AST (SGOT) 15 U/L (5-34); Albumin 3.5 g/dL (3.4-4.8); Alkaline Phosphatase 77 U/L (40-150); Anion Gap 16 mmol/L (10-20); BUN (Urea Nitrogen) 19 mg/dL (8.4-25.7); Bilirubin, Total 0.6 mg/dL (0.2-1.2); Calc. Creatinine Clearance 0 mL/min (70-130); Carbon Dioxide 23 mmol/L (23-31); Chloride 102 mmol/L (98-107); Estimated GFR-MDRD 59; Globulin 2.9 g/dL (2.4-3.5); Glucose 116 mg/dL (83-110); Potassium 4.2 mmol/L (3.5-5.1); Protein, Total 6.4 g/dL (5.8-8.1); Sodium 137 mmol/L (136-145)
[2018-01-17 16:56] LABS: Bilirubin Negative (Negative); Blood, Urine Negative (Negative); Clarity CLEAR (Clear); Glucose, Urine (Dipstick) Negative (Negative); Leukocyte Negative (Negative); Nitrite Negative (Negative); Protein, Urine (Dipstick) Trace mg/dL (Neg-Trace); Specific Gravity, Urine 1.019 (1.002-1.036)
[2018-01-17] MEDS ORDERED: Azithromycin 500 MG VIAL ONE (17:22)
[2018-01-17] MEDS ORDERED: cefTRIAXone\\ROCEPHIN 1 GM VIAL ONE (17:22)
[2018-01-17] MEDS ORDERED: Ondansetron HCl/PF 4 MG/2 ML Vial IVP PRN (18:47)
[2018-01-17] MEDS ORDERED: Ondansetron ODT 4 MG TAB SL PRN (18:47)
[2018-01-17] MEDS ORDERED: Acetaminophen 325 MG TAB PO PRN ×2 (18:47→19:41)
[2018-01-17 18:58] VITALS: BMI 28.8
[2018-01-17] MEDS ORDERED: Mag-Al 1200 mg/1200 mg/30 ML UDCUP PO PRN (19:41)
[2018-01-17] MEDS ORDERED: Sodium Chloride 0.9% 1,000 ML IV SCH (19:41)
[2018-01-17] MEDS ORDERED: Benzonatate 100 MG CAP PO PRN (19:41)
[2018-01-17] MEDS ORDERED: hydrALAZINE 20 MG/ML VIAL SLOW IVP PRN (19:41)
[2018-01-17 19:49] LABS: Lactic Acid 1.3 mmol/L (0.5-2.2)
[2018-01-17] MEDS ORDERED: Mometasone/Formoterol 120 PUFF INHALER INH SCH (20:00)
[2018-01-17] MEDS ORDERED: VANCOMYCIN IVPB PRN (20:01)
--- NOTE | 2018-01-17 21:55 | HP ---
PRIMARY CARE PHYSICIAN: Dr. Shane Baker. CHIEF COMPLAINT: Cough and congestion and decreased oral intake. HISTORY OF PRESENT ILLNESS: This is very limited as the patient has advanced dementia and is unable to give me any history and the family members have since left. The patient is an 87-year-old gentlem an, who has a history of COPD and he was recently admitted to the hospital for pneumonia back in [place] of this year. He lives with family and they brought him in because he has been having decreased or al intake and has been having cough and congestion. He has generally not been feeling well and think s he may have a fever. They are concerned that he might have developed pneumonia again. In the ER, he was found to have a leukocytosis; however, his chest x-ray did not show any obvious infiltrate. H owever, with the congestion on exam as well as white count of 26,000 and an elevated lactic acid, he is being admitted. REVIEW OF SYSTEMS: Unobtainable due to the patient's advanced dementia. PAST MEDICAL HISTORY: Taken from a previous history and physical by Dr. Baker in October and includes hypertension, dementia, COPD, dyslipidemia, gastroesophageal reflux disease, chronic low back pain, p rostate cancer and history of sick sinus syndrome. PAST SURGICAL HISTORY: He has had a right carotid endarterectomy; coronary artery bypass grafting, 2 vessels; colonoscopy in 2005 and a finger amputation. ALLERGIES: No known drug allergies. SOCIAL HISTORY: He lives at home with family. He is a former smoker. He has smoked for at least 70 years prior to that. No history of alcohol use and he is a FULL CODE. FAMILY HISTORY: Unobtainable. MEDICATIONS: Taken from the records from the emergency room and include prednisone 10 mg daily, Name nda 10 mg twice a day, amlodipine 10 mg daily, DuoNeb 1 to 4 times a day as needed. PHYSICAL EXAMINATION: GENERAL: He is alert and oriented to person and place. He is well-developed and well-nourished. He appears to be in no acute distress. VITAL SIGNS: His blood pressure was 128/64, heart rate 119, respiratory rate of 24, temperature was 100.9, O2 sat was 95% on room air. HEENT: Pupils are equal, round, and reactive. Extraocular muscles are intact. His sclerae are anic teric. Throat: He has got dry mucous membranes, no oral lesions. NECK: There is no adenopathy, no bruits. LUNGS: He has got bilateral rhonchi as well as some rales at the bases and some mild expiratory whee ze. CARDIOVASCULAR: Heart sounds are slightly distant. He has a normal S1, S2. No S3 or S4. No murmur s, clicks or rubs. ABDOMEN: Obese, it is soft, nontender, nondistended. Positive for bowel sounds. No rebound, no gua rding. EXTREMITIES: There is no edema. NEUROLOGIC: The exam is nonfocal. LABORATORY DATA: White blood cell count 26.2, hemoglobin 11.6, hematocrit is 36.3, platelet count wa s 304. Sodium 137, potassium 4.2, chloride is 102, CO2 is 23, BUN of 19, creatinine 1.17, glucose is 116. Lactic acid was 3.7. Urinalysis was negative. ASSESSMENT AND PLAN: This is an 87-year-old gentleman that comes in with cough and congestion, leuko cytosis and fever. His chest x-ray is relatively clear; however, his lung sounds are quite congested . He does meet criteria for sepsis with the fever, elevated white blood cell count and lactic acid. The likely source is pulmonary. He will be admitted inpatient and since he has had a hospital stay within the last 90 days, we will treat him with more broad-spectrum antibiotics to consider healthcar e associated infection. He will continue neb treatments for COPD as well as supplemental oxygen. He will be placed on deep venous thrombosis and gastrointestinal prophylaxis and we will follow up on u rine and blood cultures and also trend his white blood cell count.
[2018-01-17] MEDS: Cefepime 1 GM in Sodium Chloride 0.9% 100 ML IVPB SCH (22:02)
[2018-01-17] MEDS: guaiFENesin ER 600 MG TAB PO SCH (22:16)
[2018-01-18 05:06] LABS: #Lymphocytes 0.5 thou/uL (1.20-3.40); #Monocytes 0.2 thou/uL (0.11-0.59); #Neutrophils 19.2 thou/uL (1.40-6.50); %Eosinophils 0.1 % (0.0-10.0); %Lymphocytes 2.7 % (21.0-51.0); %Monocytes 0.8 % (0.0-10.0); %Neutrophils 96.4 % (42.0-75.0); Hemoglobin 9.9 g/dL (14.0-18.0); Mean Corpuscular Volume 83.9 fl (80.0-94.0); Mean Platelet Volume 8.4 fL (7.4-10.4); Platelet Count 225 thou/uL (130-400); RBC Distribution Width 15.9 % (11.5-14.5); White Blood Cell (WBC) Count 19.9 thou/uL (4.8-10.8)
[2018-01-18 05:19] LABS: Anion Gap 11 mmol/L (10-20); BUN (Urea Nitrogen) 20 mg/dL (8.4-25.7); Calc. Creatinine Clearance 56 mL/min (70-130); Calcium 8.6 mg/dL (7.8-10.44); Carbon Dioxide 23 mmol/L (23-31); Chloride 106 mmol/L (98-107); Estimated GFR-MDRD 72; Glucose 161 mg/dL (83-110); Potassium 4.4 mmol/L (3.5-5.1); Sodium 136 mmol/L (136-145)
[2018-01-18] MEDS: Mometasone/Formoterol 120 PUFF INHALER INH SCH ×2 (06:48→19:04)
[2018-01-18] MEDS: Cefepime 1 GM in Sodium Chloride 0.9% 100 ML IVPB SCH ×2 (08:32→21:10)
[2018-01-18] MEDS: Amlodipine 10 MG TAB PO SCH (08:35)
[2018-01-18] MEDS: Enoxaparin Sodium 40 MG/0.4 ML SYRINGE SC SCH (08:35)
[2018-01-18] MEDS: guaiFENesin ER 600 MG TAB PO SCH ×2 (08:35→21:13)
[2018-01-18] MEDS: Polyethylene Glycol 3350 17 GM Packet PO SCH (08:36)
[2018-01-18] MEDS ORDERED: Prevnar 13-Val Conj/PF 0.5 ML SYRINGE IM ONE (09:00)
[2018-01-18] MEDS ORDERED: Vancomycin HCl 1 GM in Premix Bag 1 BAG IVPB SCH (09:00)
--- NOTE | 2018-01-18 16:17 | PDOC.PN ---
- Subjective Encounter Start Date: 01/18/18 Encounter Start Time: 11:20 Subjective: pt up in bed family at bedside. - Objective Resuscitation Status: Resuscitation Status FULL:Full Resuscitation Vital Signs & Weight: Vital Signs (12 hours) Temp Pulse Resp BP Pulse Ox 01/18/18 13:56 106 H 16 01/18/18 11:45 98.3 F 111 H 20 139/63 92 L 01/18/18 07:31 97.8 F 99 16 110/53 L 93 L 01/18/18 06:48 102 H 16 01/18/18 06:39 91 L 01/18/18 06:36 102 H 16 Weight Weight 166 lb 9.6 oz I&O: 01/17/18 01/18/18 01/19/18 06:59 06:59 06:59 Intake Total 925 Output Total 300 Balance 625 Result Diagrams: 01/18/18 04:44 01/18/18 04:44 Phys Exam - Physical Examination HEENT: PERRLA, moist MMs, sclera anicteric, TM's clear, oral pharynx no lesions , 2+ tonsils Neck: no nodes, no JVD, supple, full ROM mild exp wheezing to lower bases Cardiovascular: RRR, no significant murmur, no rub, gallop, irregular Gastrointestinal: soft, non-tender, no distention, positive bowel sounds Neurological: non-focal, normal sensation, moves all 4 limbs Dx/Plan (1) COPD exacerbation Code(s): J44.1 - CHRONIC OBSTRUCTIVE PULMONARY DISEASE W (ACUTE) EXACERBATION Status: Acute Comment: Improved with IV steroids, no on po (2) Leukocytosis Code(s): D72.829 - ELEVATED WHITE BLOOD CELL COUNT, UNSPECIFIED Status: Acute Comment: bandemia resolved, spike appears to coincide with increased dose of steroids. No fever. Blood cultures negative. (3) Pneumonia Code(s): J18.9 - PNEUMONIA, UNSPECIFIED ORGANISM Status: Resolved Comment: CXR infiltrates resolved, suspect possibility of atelecasis as source. (4) Dementia Code(s): F03.90 - UNSPECIFIED DEMENTIA WITHOUT BEHAVIORAL DISTURBANCE Status: Acute - Plan * . pt's cxr does not indicate any infiltrates. will discontinue vanco and check procalcitonin level. will add some steroids. continue duonebs for now. pt's daughters states that he has been awake at night and wondering around. will start pt on seroquel for now. Review of Systems - Review of Systems ENT: negative: Ear Pain, Ear Discharge, Nose Pain, Nose Discharge, Nose Congestion, Mouth Pain, Mouth Swelling, Throat Pain, Throat Swelling, Other Respiratory: negative: Cough, Dry, Shortness of Breath, Hemoptysis, SOB with Excertion, Pleuritic Pain, Sputum, Wheezing Cardiovascular: negative: chest pain, palpitations, orthopnea, paroxysmal nocturnal dyspnea, edema, light headedness, other Gastrointestinal: negative: Nausea, Vomiting, Abdominal Pain, Diarrhea, Constipation, Melena, Hematochezia, Other Genitourinary: negative: Dysuria, Frequency, Incontinence, Hematuria, Retention , Other - Medications/Allergies Allergies/Adverse Reactions: Allergies Allergy/AdvReac Type Severity Reaction Status Date / Time No Known Allergies Allergy Verified 10/19/17 23:04 Medications: Current Medications Acetaminophen (Tylenol) 650 mg PO Q4H PRN PRN Reason: Headache/Fever or Pain Al Hydroxide/Mg Hydroxide (Maalox) 30 ml PO Q6H PRN PRN Reason: Heartburn or Indigestion Last Admin: 01/18/18 10:03 Dose: 30 ml Albuterol/Ipratropium (Duoneb) 3 ml NEB Q4H PRN PRN Reason: SOB &/or Wheezing Albuterol/Ipratropium (Duoneb) 3 ml NEB [id number] [facility] Last Admin: 01/18/18 13:56 Dose: 3 ml Amlodipine Besylate (Norvasc) 10 mg PO DAILY [facility] Last Admin: 01/18/18 08:35 Dose: 10 mg Aspirin (Aspirin Chewable) 81 mg PO DAILY [facility] Last Admin: 01/18/18 08:35 Dose: 81 mg Benzonatate (Tessalon) 100 mg PO Q4H PRN PRN Reason: Cough Enoxaparin Sodium (Lovenox) 40 mg SC 0900 [facility] Last Admin: 01/18/18 08:35 Dose: 40 mg Guaifenesin (Mucinex) 600 mg PO Q12HR [facility] Last Admin: 01/18/18 08:35 Dose: 600 mg Hydralazine HCl (Apresoline) 10 mg SLOW IVP Q4H PRN PRN Reason: Systolic BP > 180 Cefepime HCl 1 gm/ Sodium (Chloride) 100 mls @ 200 mls/hr IVPB 0800,1999 [facility] Last Admin: 01/18/18 08:32 Dose: 100 mls Memantine (Namenda) 10 mg PO BID [facility] Last Admin: 01/18/18 08:36 Dose: 10 mg Methylprednisolone Sodium Succinate (Solu-Medrol) 20 mg IVP BID [facility] Miscellaneous Medication (Pharmacy To Dose) 1 each IVPB PRN PRN PRN Reason: SEPSIS Mometasone Furoate/Formoterol Fumar (Dulera 200 Mcg/5 Mcg Inhaler) 1 puff INH BID-RT [facility] Last Admin: 01/18/18 06:48 Dose: 1 puff Polyethylene Glycol (Miralax) 17 gm PO DAILY [facility] Last Admin: 01/18/18 08:36 Dose: Not Given Quetiapine Fumarate (Seroquel) 25 mg PO 1900 [facility]
[2018-01-19] MEDS: Mometasone/Formoterol 120 PUFF INHALER INH SCH ×2 (07:50→19:00)
[2018-01-19] MEDS ORDERED: Non-Formulary Item 1 EACH (Fluticasone/Umeclidin/Vilanter [Trelegy Ellipta 100-62.5-25] 1 IH SCH (09:00)
[2018-01-19 09:18] LABS: Band 3 % (5-11); Hemoglobin 9.4 g/dL (14.0-18.0); Hypochromia SLIGHT = 6-15 cells (100X) (0-5/hpf); Lymphocytes 6 % (21-51); MDiff Complete? YES; Mean Corpuscular HGB CONC 30.6 g/dL (32.0-36.0); Mean Corpuscular Hemoglobin 25.8 pg (27.0-31.0); Mean Corpuscular Volume 84.2 fl (80.0-94.0); Mean Platelet Volume 7.9 fL (7.4-10.4); Monocytes 1 % (0-10); Neutrophil 90 % (42-75); Ovalocytes SLIGHT = 2-5 cells (100X) (0-1/hpf); PLT Morphology Comment Appears Adequate; Platelet Count 256 thou/uL (130-400); Polychromasia SLIGHT = 2-3 cells (100X) (0-2/hpf); Red Blood Cell (RBC) Count 3.65 mill/uL (4.70-6.10); White Blood Cell (WBC) Count 17.7 thou/uL (4.8-10.8)
[2018-01-19] MEDS: Cefepime 1 GM in Sodium Chloride 0.9% 100 ML IVPB SCH (09:52)
[2018-01-19] MEDS: Enoxaparin Sodium 40 MG/0.4 ML SYRINGE SC SCH (09:52)
[2018-01-19] MEDS: Amlodipine 10 MG TAB PO SCH (09:52)
[2018-01-19] MEDS: guaiFENesin ER 600 MG TAB PO SCH ×2 (09:53→21:41)
[2018-01-19] MEDS: Polyethylene Glycol 3350 17 GM Packet PO SCH (09:55)
[2018-01-19] MEDS ORDERED: Carvedilol 6.25 MG TAB PO SCH (11:00)
[2018-01-19] MEDS: Ipratropium Bromide 2.5 ml Neb NEB SCH ×4 (11:05→22:23)
--- NOTE | 2018-01-19 13:01 | PQF ---
REBECA BENITEZ KARISHMA [id number] [facility]291 [id number] CLINICAL DOCUMENTATION IMPROVEMENT CLARIFICATION FORM: ICD-10 Updated PLEASE DO AN ADDENDUM TO THE PROGRESS NOTE WITH ANY DOCUMENTATION UPDATES OR ADDITIONS AND CARRY THROUGH TO DC SUMMARY. THANK YOU. DATE: 01-19-18 ATTN: DR. POWERS Please exercise your independent, professional judgment in responding to the clarification form. Clinical indicators are provided on the bottom of this form for your review Please check appropriate box(s) to clarify if the following diagnosis has been ruled in or ruled out: SEPSIS [ ] Ruled in diagnosis [ ] Continue to treat [ x ] Resolved [ ] Ruled out diagnosis [ x ] Cannot rule out diagnosis [ ] Other diagnosis [ ] Unable to determine For continuity of documentation, please document condition throughout progress notes and discharge summary. Thank You. CLINICAL INDICATORS - SIGNS / SYMPTOMS / LABS ED: SEPSIS; COPD EXAC SEPSIS ALERT PULSE: 96-121 RESP 17-24 TEMP 100.9 RECTAL O2 SAT 95-96 ON RA LABS: 01-17 WBC 26.2 LACTIC ACID 3.7 PRIYA PN 6-10: LEUKOCYTOSIS - BANDEMIA RESOLVED, SPIKE APPEARS TO COINCIDE W / INCREASED DOSE OF STEROIDS. NO FEVER. BLOOD CULTURES NEGATIVE. RISK FACTORS PN 6-10: COPD EXACERBATION PNA - RESOLVED TREATMENTS MAR: MAXIPIME IV 01-17 VANCOMYCIN - DUONEB THANK YOU, CALIST[place] (This form is maintained as a part of the permanent medical record) 2014 [employer]. All Rights Reserved Calista Torres RN, BS [email or web address] [facility]
[2018-01-19] MEDS: Carvedilol 6.25 MG TAB PO SCH (17:14)
[2018-01-19] MEDS ORDERED: Sodium Chloride 0.9% 10 ML ONE (20:27)
[2018-01-20] MEDS: Ipratropium Bromide 2.5 ml Neb NEB SCH ×6 (02:42→23:28)
--- NOTE | 2018-01-20 02:44 | PRG ---
DATE OF SERVICE: 01/19/2018 TIME OF VISIT: 7:30 in the morning. SUBJECTIVE: Patient watching TV and eating breakfast at the time of my arrival. He was alert, in no acute distress, not complaining of any pain. He states he had a good night and feeling better. OBJECTIVE: VITAL SIGNS: At the time of visit showed he still had an elevated pulse rate, although he had been a febrile. The pulse still was remaining over 100. O2 sats are running at 93%. GENERAL: Elderly alert male, cooperative. HEENT: Clear. NECK: Supple. LUNGS: Chest with good breath sounds bilaterally. No audible rales or rhonchi at this time. No whe ezing is noted. HEART: Regular rate and rhythm. S1 and S2. ABDOMEN: Soft, nontender. SKIN: With good turgor. MENTAL STATUS: At baseline. LABORATORY AND X-RAY FINDINGS: Lab available for that day. WBC 17,700, hemoglobin 9.4, hematocrit 3 0.8 with platelets at 256. This is continual improvement from the day before. ASSESSMENT AND PLAN: Lower respiratory infection with leukocytosis with steady improvement. We will continue him on his current treatment. We will get him up out of bed, so that he does not get too d econditioned. We will recheck his lab in the morning and probably progress him to oral medication an d then to discharge if he continues to improve.
[2018-01-20 05:18] LABS: #Lymphocytes 0.6 thou/uL (1.20-3.40); #Monocytes 0.2 thou/uL (0.11-0.59); #Neutrophils 11.8 thou/uL (1.40-6.50); %Basophils 0.2 % (0.0-1.0); %Lymphocytes 4.9 % (21.0-51.0); %Monocytes 1.6 % (0.0-10.0); %Neutrophils 93.3 % (42.0-75.0); Hemoglobin 8.4 g/dL (14.0-18.0); Mean Corpuscular HGB CONC 31.7 g/dL (32.0-36.0); Mean Corpuscular Hemoglobin 26.4 pg (27.0-31.0); Mean Corpuscular Volume 83.1 fl (80.0-94.0); Mean Platelet Volume 8.3 fL (7.4-10.4); Platelet Count 259 thou/uL (130-400); RBC Distribution Width 15.8 % (11.5-14.5); Red Blood Cell (RBC) Count 3.19 mill/uL (4.70-6.10); White Blood Cell (WBC) Count 12.6 thou/uL (4.8-10.8)
[2018-01-20 05:39] LABS: Anion Gap 11 mmol/L (10-20); BUN (Urea Nitrogen) 38 mg/dL (8.4-25.7); Calc. Creatinine Clearance 54 mL/min (70-130); Calcium 8.7 mg/dL (7.8-10.44); Carbon Dioxide 26 mmol/L (23-31); Chloride 106 mmol/L (98-107); Estimated GFR-MDRD 73; Glucose 145 mg/dL (83-110); Potassium 4.7 mmol/L (3.5-5.1); Sodium 138 mmol/L (136-145)
--- NOTE | 2018-01-20 07:13 | PRG ---
DATE OF SERVICE: 01/20/2018 TIME: 0640 HISTORY OF PRESENT ILLNESS: The patient arouses easily, states he rested well. Audible wheezing is noted. He responds with garbled speech and when asked to repeated it, it becomes a little bit more i ntelligible. The sitter states that he had rested through the night well, getting up to go the bathro om without difficulty, not noting any significant confusion or agitation overnight. VITAL SIGNS: Showed no fever. Pulse rate has finally come down into the 80s and 70s. O2 sats are a round 93%. Blood pressure 128/61. LABORATORY AND X-RAY FINDINGS: This morning show WBCs have decreased to 12.6, hemoglobin has decreas ed 8.4 with a hematocrit down to 26.5, platelets at 259. Sodium 138, potassium 4.7, chloride 106, CO 2 26, BUN 38, creatinine 0.97 with a glucose of 145. One blood culture positive with coag negative. OBJECTIVE: GENERAL: Well-developed, well-nourished elderly male, easily responsive, alert with garbled speech. HEENT: Normocephalic and atraumatic. Pupils are equal, round, and reactive to light. Arcus senilis bilaterally. Nares and pharynx are clear. NECK: Supple. LUNGS: Chest with diffuse wheezes. No audible rales. HEART: Regular rate and rhythm. ABDOMEN: Soft, nontender, without mass or organomegaly. EXTREMITIES: Without clubbing, no cyanosis or edema. SKIN: Without rashes or lesions. NEUROLOGIC: Grossly intact with mental status at baseline. ASSESSMENT AND PLAN: 1. Sepsis, probably due to bronchitis, improving. 2. Chronic obstructive pulmonary disease exacerbation with improvement. 3. Leukocytosis secondary to sepsis and bronchitis that is improving. 4. Anemia. This is a significant drop from admission and may indicate gastrointestinal bleed. 5. Dementia, stable. 6. Hypoglycemia, probably due to steroid therapy. The plan is to ambulate this patient, have PT see the patient. Recheck chest x-ray PA and lateral. We will start hemocculting his stools, switch him to oral medication and stop IV steroids in place of oral steroids and serially reevaluate him pending these results and response to treatments.
[2018-01-20 07:27] LABS: Hemoglobin 8.8 g/dL (14.0-18.0); Mean Corpuscular HGB CONC 31.5 g/dL (32.0-36.0); Mean Corpuscular Hemoglobin 26.6 pg (27.0-31.0); Mean Corpuscular Volume 84.5 fl (80.0-94.0); Mean Platelet Volume 8.1 fL (7.4-10.4); Platelet Count 226 thou/uL (130-400); RBC Distribution Width 15.9 % (11.5-14.5); Red Blood Cell (RBC) Count 3.28 mill/uL (4.70-6.10); White Blood Cell (WBC) Count 12.2 thou/uL (4.8-10.8)
[2018-01-20 07:28] LABS: #Lymphocytes 0.6 thou/uL (1.20-3.40); #Monocytes 0.3 thou/uL (0.11-0.59); #Neutrophils 11.3 thou/uL (1.40-6.50); %Basophils 0.2 % (0.0-1.0); %Eosinophils 0.1 % (0.0-10.0); %Lymphocytes 5.1 % (21.0-51.0); %Monocytes 2.5 % (0.0-10.0); %Neutrophils 92.2 % (42.0-75.0)
[2018-01-20] MEDS: Mometasone/Formoterol 120 PUFF INHALER INH SCH ×2 (07:37→19:32)
[2018-01-20 07:44] LABS: Band 1 % (5-11); Lymphocytes 5 % (21-51); MDiff Complete? YES; Monocytes 2 % (0-10); Neutrophil 92 % (42-75); RBC Morphology Normal
--- NOTE | 2018-01-20 08:10 | PDOC.PN ---
- Subjective Encounter Start Date: 01/19/18 Encounter Start Time: 10:30 Subjective: pt up in bed no complains. Spoke with daughter who wants to take pt home -: when pt walked he was very sob and continued to wheeze. -: Notified her about it and recommended to keep him here for close monitoring - Objective Resuscitation Status: Resuscitation Status FULL:Full Resuscitation Vital Signs & Weight: Vital Signs (12 hours) Temp Pulse Resp BP Pulse Ox 01/20/18 07:48 97.2 F L 101 H 18 01/20/18 07:41 97 01/20/18 07:40 97.2 F L 101 H 18 143/69 H 97 01/20/18 07:38 101 H 16 97 01/20/18 02:58 98.2 F 73 16 128/61 92 L 01/20/18 02:42 82 12 01/20/18 00:00 18 01/19/18 22:23 70 12 Weight Weight 159 lb 12.8 oz I&O: 01/19/18 01/20/18 01/21/18 06:59 06:59 06:59 Intake Total 880 1280 Output Total 300 350 Balance 580 930 Result Diagrams: 01/20/18 07:16 01/20/18 04:45 Phys Exam - Physical Examination Neck: no nodes, no JVD, supple, full ROM mild rhonchi all over and wheezing Cardiovascular: RRR, no significant murmur, no rub, gallop, irregular Gastrointestinal: soft, non-tender, no distention, positive bowel sounds Dx/Plan (1) COPD exacerbation Code(s): J44.1 - CHRONIC OBSTRUCTIVE PULMONARY DISEASE W (ACUTE) EXACERBATION Status: Acute Comment: Improved with IV steroids, no on po (2) Leukocytosis Code(s): D72.829 - ELEVATED WHITE BLOOD CELL COUNT, UNSPECIFIED Status: Acute (3) Pneumonia Code(s): J18.9 - PNEUMONIA, UNSPECIFIED ORGANISM Status: Resolved (4) Dementia Code(s): F03.90 - UNSPECIFIED DEMENTIA WITHOUT BEHAVIORAL DISTURBANCE Status: Acute - Plan * Hold discharge for now since pt continue to have wheezing and sob. * will continue iv steroids/abx and duonebs * will decrease seroquel to 12.5mg since pt appeared a bit drowsy to me this morning. * Discussed with daughter. Review of Systems - Review of Systems Eyes: negative: Pain, Vision Change, Conjunctivae Inflammation, Eyelid Inflammation, Redness, Other ENT: negative: Ear Pain, Ear Discharge, Nose Pain, Nose Discharge, Nose Congestion, Mouth Pain, Mouth Swelling, Throat Pain, Throat Swelling, Other Respiratory: negative: Cough, Dry, Shortness of Breath, Hemoptysis, SOB with Excertion, Pleuritic Pain, Sputum, Wheezing Cardiovascular: negative: chest pain, palpitations, orthopnea, paroxysmal nocturnal dyspnea, edema, light headedness, other Gastrointestinal: negative: Nausea, Vomiting, Abdominal Pain, Diarrhea, Constipation, Melena, Hematochezia, Other - Medications/Allergies Allergies/Adverse Reactions: Allergies Allergy/AdvReac Type Severity Reaction Status Date / Time No Known Allergies Allergy Verified 10/19/17 23:04 Medications: Current Medications Acetaminophen (Tylenol) 650 mg PO Q4H PRN PRN Reason: Headache/Fever or Pain Al Hydroxide/Mg Hydroxide (Maalox) 30 ml PO Q6H PRN PRN Reason: Heartburn or Indigestion Last Admin: 01/18/18 10:03 Dose: 30 ml Albuterol/Ipratropium (Duoneb) 3 ml NEB Q4H PRN PRN Reason: SOB &/or Wheezing Amlodipine Besylate (Norvasc) 10 mg PO DAILY [facility] Last Admin: 01/20/18 08:42 Dose: 10 mg Aspirin (Aspirin Chewable) 81 mg PO DAILY [facility] Last Admin: 01/20/18 08:42 Dose: 81 mg Benzonatate (Tessalon) 100 mg PO Q4H PRN PRN Reason: Cough Budesonide (Pulmicort Neb Solution) 0.5 mg NEB BID-RT [facility] Last Admin: 01/20/18 19:20 Dose: 0.5 mg Carvedilol (Coreg) 12.5 mg PO BID-WM [facility] Last Admin: 01/20/18 17:41 Dose: 12.5 mg Donepezil HCl (Aricept) 5 mg PO HS [facility] Last Admin: 01/20/18 20:16 Dose: 5 mg Enoxaparin Sodium (Lovenox) 40 mg SC 0900 [facility] Last Admin: 01/20/18 08:42 Dose: 40 mg Guaifenesin (Mucinex) 600 mg PO Q12HR [facility] Last Admin: 01/20/18 20:16 Dose: 600 mg Hydralazine HCl (Apresoline) 10 mg SLOW IVP Q4H PRN PRN Reason: Systolic BP > 180 Ipratropium [place] (Atrovent) 2.5 ml NEB [id number] [facility] Last Admin: 01/21/18 03:10 Dose: 2.5 ml Levofloxacin (Levaquin) 500 mg PO 0600 [facility] Last Admin: 01/21/18 05:31 Dose: 500 mg Memantine (Namenda) 10 mg PO BID [facility] Last Admin: 01/20/18 20:16 Dose: 10 mg Mometasone Furoate/Formoterol Fumar (Dulera 200 Mcg/5 Mcg Inhaler) 1 puff INH BID-RT [facility] Last Admin: 01/20/18 19:32 Dose: 1 puff Non-Formulary Medication (Fluticasone/Umeclidin/Vilanter [Trelegy Ellipta 100- 62.5-25]) 1 each IH DAILY [facility] Polyethylene Glycol (Miralax) 17 gm PO DAILY [facility] Last Admin: 01/20/18 08:42 Dose: 17 gm Prednisone (Prednisone) 10 mg PO BID-WM [facility] Last Admin: 01/20/18 17:41 Dose: 10 mg Quetiapine Fumarate (Seroquel) 12.5 mg PO 1800 [facility] Last Admin: 01/20/18 17:41 Dose: 12.5 mg Sodium Chloride (Flush - Normal Saline) 10 ml IVF Q12HR [facility] Last Admin: 01/20/18 20:16 Dose: 10 ml Sodium Chloride (Flush - Normal Saline) 10 ml IVF PRN PRN PRN Reason: Saline Flush
[2018-01-20] MEDS: guaiFENesin ER 600 MG TAB PO SCH ×2 (08:41→20:16)
[2018-01-20] MEDS: Polyethylene Glycol 3350 17 GM Packet PO SCH (08:42)
[2018-01-20] MEDS: Amlodipine 10 MG TAB PO SCH (08:42)
[2018-01-20] MEDS: Enoxaparin Sodium 40 MG/0.4 ML SYRINGE SC SCH (08:42)
[2018-01-20] MEDS: Carvedilol 6.25 MG TAB PO SCH ×2 (08:42→17:41)
[2018-01-20] MEDS: predniSONE 5 MG TAB PO SCH ×2 (08:44→17:41)
--- NOTE | 2018-01-20 09:02 | RAD ---
CHEST 2 VIEWS: Date: 01/20/18 HISTORY: COPD. COMPARISON: 01/17/18. FINDINGS: Cardiac silhouette and pulmonary vasculature are unremarkable. Mediastinum midline with postoperative changes, aortic calcification, and a dual lead left subclavian cardiac electronic device. Calcified granulomata are consistent with healed granulomatous disease. No lobar consolidation, pneumothorax, o r pleural fluid. Small hiatal hernia. IMPRESSION: 1. Improved aeration of the lungs. No significant pulmonary edema. 2. Atherosclerosis. POS: [facility]
[2018-01-20] MEDS: Budesonide 0.5 MG/2 ML NEB NEB SCH (19:20)
[2018-01-20] MEDS ORDERED: Donepezil HCl 5 MG TAB PO SCH (21:00)
[2018-01-21] MEDS: Ipratropium Bromide 2.5 ml Neb NEB SCH ×3 (03:10→11:02)
--- NOTE | 2018-01-21 06:18 | PDOC.EVN ---
Event Note - Event Note Event Note: Pt of Dr Baker. will signoff. Asked engineering secretary to call and notify him about this.
[2018-01-21] MEDS: Mometasone/Formoterol 120 PUFF INHALER INH SCH (07:49)
[2018-01-21] MEDS: Budesonide 0.5 MG/2 ML NEB NEB SCH (07:50)
[2018-01-21 08:24] VITALS: BP 118/78; TEMP 98.4
[2018-01-21] MEDS: guaiFENesin ER 600 MG TAB PO SCH (08:25)
[2018-01-21] MEDS: Carvedilol 6.25 MG TAB PO SCH (08:25)
[2018-01-21] MEDS: predniSONE 5 MG TAB PO SCH (08:25)
[2018-01-21] MEDS: Amlodipine 10 MG TAB PO SCH (08:26)
[2018-01-21] MEDS: Polyethylene Glycol 3350 17 GM Packet PO SCH (08:26)
[2018-01-21] MEDS: Enoxaparin Sodium 40 MG/0.4 ML SYRINGE SC SCH (08:26)
--- NOTE | 2018-01-21 12:20 | DIS ---
CHIEF COMPLAINT ON ADMISSION: Cough, congestion and decreased oral intake. History and physical have previously been dictated. I will resume from there. HOSPITAL COURSE: The patient was placed in a telemetry medical bed where neb treatments were continued throughout the day. IV fluids begun. IV antibiotics begun and he quickly responded to treatment in the first 24 hours. He became more alert and responsive. He had diffuse wheezes, but improved with IV steroids quickly. His leukocytosis also quickly responded to IV antibiotics. There was concern initially that this may have been a pneumonia, but no infiltrates or ever actually seen. He remained afebrile over the next 24 hours. By 01/19/2018 he continued to improve. He was, however, very short- winded when he would walk and he continued to wheeze. Aside from that, his leukocytosis continued to improve. His appetite improved. He had mild rhonchi all over. There was no fever. His vital signs were stable. Dr. Baker began seeing him on 01/19/2018 and again the patient responded well, alert, cooperative. He had rested well, no complaints. We took him at this point off his IV antibiotics, began p.o. antibiotics and reduced his prednisone therapy and got him out of bed to make sure he did not get too deconditioned. Finally by the day of discharge had rested well, no fever, no complaints, eating well, out of bed and no further issues. He is discharged in stable condition. DIAGNOSES AT DISCHARGE: 1. Sepsis due to bronchitis. 2. Exacerbation of chronic obstructive pulmonary disease. 3. Leukocytosis secondary to sepsis. 4. Hospital noted anemia that is hemodilutional and improving before discharge. 5. Dementia, stable. The patient will be sent home on Coreg 12.5 b.i.d., donepezil 5 mg at bedtime, Levaquin 500 daily #5, Namenda 10 b.i.d., and prednisone 10 mg daily. He is to follow up with Dr. Baker in 1 week. The time required to review the chart, examine the patient, the daughter was called and counseled and all her questions answered and the chart was prepared for discharge including reconciliatiion of all his medication and dictation came to 40 minutes. He is discharged in stable condition. [facility] HOSPITALTheresa
--- NOTE | 2018-01-22 10:59 | PQF ---
REBECA BENITEZ TONI MD [id number] [facility]-291 [id number] CLINICAL DOCUMENTATION CLARIFICATION FORM: POST DISCHARGE Addendum to original discharge summary date: ____ Late entry note date: __ Please exercise your independent, professional judgment in responding to the clarification form. Clinical indicators are provided on the bottom of this form for your review Clarify the Chronic Obstructive Pulmonary Disease (COPD) with BRONCHITIS Please check appropriate box(s): ( ) COPD with acute bronchitis ( ) COPD with Pneumonia ( ) Chronic obstructive bronchitis ( ) Chronic COPD with acute lower respiratory infection (specify site) ( ) Other (please specify): ( ) Unable to determine [ ] Diagnosis Option 1 [ ] Diagnosis Option 2 [ ] Other diagnosis [ ] Unable to determine In addition, please specify: Present on Admission (POA): [ ] Yes [ ] No [ ] Unable to determine For continuity of documentation, please document condition throughout progress notes and discharge summary. Thank You. CLINICAL INDICATORS - SIGNS / SYMPTOMS / LABS Short of Breath RISK FACTORS COPD exacerbation TREATMENTS: antibiotic breathing treatments (This form is maintained as a part of the permanent medical record) 2014 [employer]. All Rights Reserved [email or web address] [phone] JAMEEL
== END 2018-01-21 12:08 | disposition home or self-care (01) | DRG 872 ==
LOC: ERS 15:15 → 2NO 17:24
PROVIDERS: ADMIT Internal Medicine; ATTEND Internal Medicine
DX: A41.9 Sepsis, unspecified organism (principal); J44.0 Chronic obstructive pulmonary disease with (acute) lower respiratory infection; J44.1 Chronic obstructive pulmonary disease with (acute) exacerbation; I10 Essential (primary) hypertension; G30.9 Alzheimer's disease, unspecified; F02.80 Dementia in other diseases classified elsewhere, unspecified severity, without behavioral disturbance, psychotic disturbance, mood disturbance, and anxiety; R73.9 Hyperglycemia, unspecified; T38.0X5A Adverse effect of glucocorticoids and synthetic analogues, initial encounter; Y92.239 Unspecified place in hospital as the place of occurrence of the external cause; I25.10 Atherosclerotic heart disease of native coronary artery without angina pectoris; D64.9 Anemia, unspecified; I48.91 Unspecified atrial fibrillation; I49.3 Ventricular premature depolarization; K21.9 Gastro-esophageal reflux disease without esophagitis; G89.29 Other chronic pain; M54.9 Dorsalgia, unspecified; Z87.01 Personal history of pneumonia (recurrent); Z95.1 Presence of aortocoronary bypass graft; Z95.0 Presence of cardiac pacemaker; Z89.022 Acquired absence of left finger(s); Z87.891 Personal history of nicotine dependence; Z79.899 Other long term (current) drug therapy; Z79.52 Long term (current) use of systemic steroids; Z86.79 Personal history of other diseases of the circulatory system; Z85.46 Personal history of malignant neoplasm of prostate
CPT/HCPCS: 36415; 71045; 71046; 80048; 80053; 81003; 83605; 84145; 85007; 85025; 85027; 87040; 87086; 87149; 90471; 90670; 93005; 94640; 96361; 96365; 96367; 96374; 96375; A4216; G0009; G8978-GP-CI; G8979-GP-CI; G8980-GP-CI; J0456; J0692; J0696; J1650; J2920; J2930; J3370; J7050; J7620; J7626; J7644

== ENCOUNTER 2018-02-02 12:16 | Inpatient (IN) | payer MEDICARE ==
[2018-02-02 13:13] LABS: #Lymphocytes 0.5 thou/uL (1.20-3.40); #Monocytes 1.3 thou/uL (0.11-0.59); #Neutrophils 17.9 thou/uL (1.40-6.50); %Basophils 0.2 % (0.0-1.0); %Eosinophils 0.2 % (0.0-10.0); %Lymphocytes 2.7 % (21.0-51.0); %Monocytes 6.7 % (0.0-10.0); %Neutrophils 90.3 % (42.0-75.0); Hemoglobin 8.2 g/dL (14.0-18.0); Mean Corpuscular HGB CONC 30.9 g/dL (32.0-36.0); Mean Corpuscular Hemoglobin 25.1 pg (27.0-31.0); Mean Corpuscular Volume 81.3 fL (78.0-98.0); Mean Platelet Volume 7.8 fL (7.4-10.4); Platelet Count 257 thou/uL (130-400); Red Blood Cell (RBC) Count 3.25 mill/uL (4.70-6.10); White Blood Cell (WBC) Count 19.8 thou/uL (4.8-10.8)
[2018-02-02 13:15] LABS: CK (CPK) 17 U/L (30-200); INR-International Normal Ratio 1.1; Lipase 32 U/L (8-78); PTT 25.1 SEC (22.9-36.1); Prothrombin Time 14.1 SEC (12.0-14.7)
[2018-02-02 13:20] LABS: ALT (SGPT) 11 U/L (8-55); AST (SGOT) 19 U/L (5-34); Alkaline Phosphatase 65 U/L (40-150); Anion Gap 11 mmol/L (10-20); BUN (Urea Nitrogen) 25 mg/dL (8.4-25.7); Bilirubin, Total 0.4 mg/dL (0.2-1.2); CKMB 0.8 ng/mL (0-6.6); Calc. Creatinine Clearance 0 mL/min (70-130); Calcium 8.7 mg/dL (7.8-10.44); Carbon Dioxide 28 mmol/L (23-31); Chloride 101 mmol/L (98-107); Estimated GFR-MDRD 63; Globulin 2.6 g/dL (2.4-3.5); Glucose 160 mg/dL (83-110); Potassium 5.1 mmol/L (3.5-5.1); Protein, Total 5.6 g/dL (5.8-8.1); Sodium 135 mmol/L (136-145); Troponin I Less than 0.010 ng/mL (< 0.028)
--- NOTE | 2018-02-02 14:14 | RAD ---
FRONTAL PORTABLE CHEST RADIOGRAPH: Date: 02-02-18 Comparison: 01-17-18 History: Abdominal pain and fever. FINDINGS: There is no pneumothorax, pleural fluid, or lobar consolidation. There is a left sided transvenous pa cing device present. Midline sternotomy wires and mediastinal clips are present, unchanged. There is pulmonary vascular congestion with increased linear interstitial density in the perihilar regions, wh ich appears new. IMPRESSION: New perihilar interstitial prominence. Findings could be related to inflammatory/infectious pneumonit is or interstitial edema. No lobar consolidation or alveolar edema. Recommend PA and lateral chest im aging following treatment to document resolution. POS: [facility]
[2018-02-02] MEDS ORDERED: Cefepime 2 GM in Sodium Chloride 0.9% 100 ML IVPB SCH (14:45)
[2018-02-02] MEDS ORDERED: Sodium Chloride 0.9% 1,000 ML IV SCH ×2 (17:30→20:15)
[2018-02-02 18:10] VITALS: BMI 24.0
[2018-02-02] MEDS ORDERED: Benzonatate 100 MG CAP PO PRN (20:05)
[2018-02-02] MEDS ORDERED: Acetaminophen 650 MG Suppository PR PRN (20:06)
[2018-02-02] MEDS ORDERED: Acetaminophen 325 MG TAB PO PRN (20:06)
[2018-02-02] MEDS ORDERED: Prevnar 13-Val Conj/PF 0.5 ML SYRINGE IM ONE (21:00)
[2018-02-02] MEDS: Cefepime 1 GM in Sodium Chloride 0.9% 100 ML IVPB SCH (21:33)
[2018-02-02] MEDS: guaiFENesin ER 600 MG TAB PO SCH (21:34)
[2018-02-02] MEDS: Donepezil HCl 5 MG TAB PO SCH (21:34)
--- NOTE | 2018-02-02 23:46 | HP ---
DATE OF ADMISSION: 02/02/2018 CHIEF COMPLAINT ON ADMISSION: Leukocytosis and fever. HISTORY OF PRESENT ILLNESS: The patient is an 87-year-old gentleman, who lives at home, recently dis charged from [facility]. His family noted that he began to run a fever on the day prior to admission given as high as 101.2. They noticed that he was not eating correctly and acted like he was somewhat short of breath and weak, and because he continued to run fever on the day of admission , they brought him into the ER for further evaluation. There he was noted to be alert and responsive . Temperature in the ER was at 100.5, respirations 28, pulse 80, blood pressure 112/52. He has al ntia and so confabulates during the history, but does reliably state he does not have any pain. He w as noted to have a wet cough in the emergency room as well. Chest x-ray shows increased interstitial markings close to the mediastinum, no acute lobar infiltrates are noted. The patient was recently h ospitalized earlier this month for an exacerbation of chronic obstructive pulmonary disease with bron chitis and this seems to be a very similar episode. PAST MEDICAL HISTORY: Significant for the aforementioned dementia. He also has hypertension, COPD, dyslipidemia, and gastroesophageal reflux. There is also a history of chronic low back pain and pros bangura cancer as well as a history of sick sinus syndrome. PAST SURGICAL HISTORY: Includes right carotid endarterectomy, coronary artery disease, bypass graft x2 vessels with a colonoscopy done in 2005, and had a finger amputation. ALLERGIES: He has no known drug allergies. SOCIAL HISTORY: As previously mentioned, he lives with his family at their home, recently discharged from [facility]. He is a former smoker of many years, but has quit. There is no histor y of alcoholism and he continues to be a FULL CODE. FAMILY HISTORY: Noncontributory. MEDICATIONS ON ADMISSION: Include prednisone 10 mg daily, Namenda 10 mg b.i.d., Aricept 5 mg at bedt disha started from last hospitalization, amlodipine 10 mg daily, DuoNeb 1 to 4 times daily, and he was discharged on Levaquin at the end of the previous hospitalization on 01/21/2018. REVIEW OF SYSTEMS: At the time of admission, constitutionally, there are reports of fever, no chills . There is general weakness noted by the family. HEENT: The eyes showed no unusual discharge, phot ophobia. ENT is significant for some rhinorrhea, but no sore throat or bloody discharge. Cardiovasc ular: The patient denies any chest pain or palpitations. Respiratory: Notable for cough and observ ed dyspnea. Genitourinary: Significant for reports of abdominal pain, but on examination, no abdomi nal pain was elicited. They did report anorexia. They deny diarrhea, nausea, vomiting, constipation . Genitourinary: No burning on urination noted or blood in the urine or stool. Musculoskeletal Sys tem: Denies any recent history of trauma. No painful joints or musculature. Skin: No new rashes o r lesions. Neurological: Notable for dementia, confusion, and confabulation. Denies headaches. He me/Lymph: Denies any new abdominal itching or clots or swelling PHYSICAL EXAMINATION: At the time of admission, VITAL SIGNS: Blood pressure 112/52, pulse 80, respirations 28, temperature 100.5. He denies any gurdeep n at this time such as 0/10. O2 sat is 94% on room air. GENERAL: This is an elderly male, alert and responsive. HEENT: Normocephalic and atraumatic. Pupils equal, round, and reactive to light. Diminished pupil size at 2 mm bilaterally, diminished reactivity noted, and arcus senilis bilaterally noted. TMs and nares are clear. Pharynx is moist, no lesions. NECK: Supple, no bruit, no masses. CHEST: With audible rhonchi across the central chest bilaterally. No fine rales are noted. ABDOMEN: Protuberant and tympanic and nontender in all quadrants and no organomegaly is detectable. GENITOURINARY: Deferred. EXTREMITIES: Without clubbing, cyanosis, or edema. Normal range of motion present. SKIN: Without rashes or lesions. NEUROLOGIC: Cranial nerves are intact. Unable to test gait and cerebellar function at this time. S ensory is grossly normal. Mental status significant for alertness, confabulation, and confusion. LABORATORY AND X-RAY FINDINGS: Lab work on admission, the chest x-ray shows interstitial perihilar m arkings that may be infectious or inflammatory. It is felt to be infectious. The WBCs are 19.8, hem oglobin 8.2, hematocrit 26.4 with 90% neutrophils and 2% lymphocytes. Platelets are 257. The sodium is 135, potassium 5.1, chloride 101, CO2 of 28, BUN 25, creatinine 1.1, glucose 160. BNP elevated a t 203. Liver functions unremarkable. Lipase 32. PT 14.1. INR 1.1. ASSESSMENT: 1. Recurrent bronchitis, possibly due to aspiration from known gastroesophageal reflux disease. 2. Chronic obstructive pulmonary disease. 3. Gastroesophageal reflux disease. 4. Dementia. 5. Hypertension - patient normally has elevated blood pressure, but is not hypertensive and we will hold his blood pressure medicines to further assess the degree of sepsis/illness that may be present. PLAN: Supportive measures with IV fluids, IV antibiotics, DuoNeb treatments, symptomatic care. Jerry duron for fever and serial reevaluation. We will also get him up out of bed and put on SCDs.
[2018-02-03 06:18] LABS: #Eosinphils 0.2 thou/uL (0.0-0.7); #Monocytes 0.9 thou/uL (0.11-0.59); #Neutrophils 9.6 thou/uL (1.40-6.50); %Basophils 0.2 % (0.0-1.0); %Eosinophils 1.6 % (0.0-10.0); %Lymphocytes 8.2 % (21.0-51.0); Hemoglobin 7.4 g/dL (14.0-18.0); Mean Corpuscular HGB CONC 29.9 g/dL (32.0-36.0); Mean Corpuscular Hemoglobin 24.5 pg (27.0-31.0); Mean Platelet Volume 7.5 fL (7.4-10.4); Platelet Count 227 thou/uL (130-400); RBC Distribution Width 15.8 % (11.5-14.5); Red Blood Cell (RBC) Count 3.03 mill/uL (4.70-6.10); White Blood Cell (WBC) Count 11.8 thou/uL (4.8-10.8)
[2018-02-03] MEDS: Cefepime 1 GM in Sodium Chloride 0.9% 100 ML IVPB SCH ×2 (09:02→21:11)
--- NOTE | 2018-02-03 09:56 | RAD ---
FRONTAL AND LATERAL IMAGING CHEST: Date: 02-03-18 Comparison: 01-20-18 History: Leukocytosis. FINDINGS: Midline sternotomy wires, mediastinal clips, and dual-lead transvenous pacing device is present. No p neumothorax, pleural fluid, focal consolidation or alveolar edema. IMPRESSION: Stable appearance of the chest - no focal consolidation or alveolar edema. POS: [facility]
[2018-02-03] MEDS: guaiFENesin ER 600 MG TAB PO SCH ×3 (12:30→20:04)
[2018-02-03] MEDS: predniSONE 20 MG TAB PO SCH (12:33)
[2018-02-03] MEDS: Donepezil HCl 5 MG TAB PO SCH (20:04)
[2018-02-04 05:17] LABS: #Eosinphils 0.3 thou/uL (0.0-0.7); #Monocytes 0.8 thou/uL (0.11-0.59); #Neutrophils 5.1 thou/uL (1.40-6.50); %Basophils 0.2 % (0.0-1.0); %Eosinophils 3.5 % (0.0-10.0); %Lymphocytes 14.4 % (21.0-51.0); %Monocytes 11.1 % (0.0-10.0); %Neutrophils 70.8 % (42.0-75.0); Hemoglobin 7.5 g/dL (14.0-18.0); Mean Corpuscular HGB CONC 30.7 g/dL (32.0-36.0); Mean Corpuscular Hemoglobin 25.3 pg (27.0-31.0); Mean Corpuscular Volume 82.5 fL (78.0-98.0); Mean Platelet Volume 7.8 fL (7.4-10.4); Platelet Count 216 thou/uL (130-400); Red Blood Cell (RBC) Count 2.97 mill/uL (4.70-6.10); White Blood Cell (WBC) Count 7.2 thou/uL (4.8-10.8)
[2018-02-04 05:29] LABS: Anion Gap 10 mmol/L (10-20); BUN (Urea Nitrogen) 17 mg/dL (8.4-25.7); Calc. Creatinine Clearance 55 mL/min (70-130); Calcium 8.4 mg/dL (7.8-10.44); Carbon Dioxide 29 mmol/L (23-31); Chloride 103 mmol/L (98-107); Estimated GFR-MDRD 76; Glucose 83 mg/dL (83-110); Potassium 4.2 mmol/L (3.5-5.1); Sodium 138 mmol/L (136-145)
[2018-02-04] MEDS: Cefepime 1 GM in Sodium Chloride 0.9% 100 ML IVPB SCH ×2 (08:50→21:48)
[2018-02-04] MEDS: predniSONE 20 MG TAB PO SCH (08:51)
[2018-02-04] MEDS: guaiFENesin ER 600 MG TAB PO SCH ×2 (08:52→19:14)
--- NOTE | 2018-02-04 09:13 | PQF ---
CLINICAL DOCUMENTATION IMPROVEMENT CLARIFICATION FORM: ICD-10 Updated PLEASE DO AN ADDENDUM TO THE PROGRESS NOTE WITH ANY DOCUMENTATION UPDATES OR ADDITIONS AND CARRY THROUGH TO DC SUMMARY. THANK YOU. DATE: 02/04 ATTN: DR. FRANCES CHUA Please exercise your independent, professional judgment in responding to the clarification form. Clinical indicators are provided on the bottom of this form for your review Please check appropriate box(es): [ x ] Sepsis due to: (Pna, UTI, gangrenous gall bladder, etc.) Aspiration bronchitis [ ] Localized infection without sepsis [ ] Other diagnosis [ ] Unable to determine For continuity of documentation, please document condition throughout progress notes and discharge summary. Thank You. CLINICAL INDICATORS - SIGNS / SYMPTOMS / LABS ER PRESENTATION 02/02: T: 100.5 (FAMILY REPORTS 101.2 AT HOME) RR: 28 HYPOTENSIVE: 95/53 - 112/52 WBC: 19.8 REC'D 2L NS, IV LEVAQUIN & CEFEPIME ER PHYSICIAN DOCUMENTATION 02/02: CONCERN FOR DEVELOPING SEPSIS. POSSIBLE PERIHILAR INFILTRATES CXR 02/02: NEW PERIHILAR INTERSTITIAL PROMINENCE. FINDINGS COULD BE R/T INFLAMMATORY/INFECTIOUS PNEUMONITIS OR INTERSTITIAL EDEMA PHYSICIAN H&P 02/02: IMPRESSION: 1) RECURRENT BRONCHITIS, POSSIBLE D/T ASPIRATION FROM KNOWN GERD; 5) HTN - NOT HYPERTENSIVE & WE WILL HOLD HIS BP MEDICINES TO FUTHER ASSESS THE DEGREE OF SEPSIS/ILLNESS THAT MAYBE PRESENT BLOOD CULTURE 1 OF 2: POSITIVE MRSE RISK FACTORS: LEUKOCYTOSIS (WBC 19.8) DEMENTIA W/MODERATE FUNCTIONAL IMPAIRMENT W/SWALLOWING BRONCHITIS/COPD TREATMENTS: IVF (2L NS IN ER) IV ANTIBIOTICS (LEVAQUIN & CEFEPIME 02/02 - PRESENT) THANK YOU! Nuzhat (This form is maintained as a part of the permanent medical record) 2014 [employer]. All Rights Reserved Nuzhat Rowley RN, BSN [email or web address] Office: [phone] [facility] HOSPITALTheresa
--- NOTE | 2018-02-04 11:32 | RAD ---
CHEST TWO VIEWS: History: Dyspnea. COPD. Comparison: 02-03-18 FINDINGS: Cardiac silhouette now partially obscured by parenchymal opacity at the left base. Second opacity als o projects over the right hilum with the appearance of atelectasis right lower lobe. Pulmonary vascul ature upper limits of normal. Calcified granulomata are consistent with healed granulomatous disease. Osseous structures are demineralized. IMPRESSION: 1. Fairly rapid development of parenchymal opacities at the right hilum and left lung base. Please co nsider close radiographic follow up. 2. Chronic type findings are otherwise stable. POS: [facility]
[2018-02-04] MEDS: Donepezil HCl 5 MG TAB PO SCH (19:14)
[2018-02-05 04:38] LABS: #Eosinphils 0.2 thou/uL (0.0-0.7); #Monocytes 0.7 thou/uL (0.11-0.59); #Neutrophils 5.1 thou/uL (1.40-6.50); %Eosinophils 3.5 % (0.0-10.0); %Lymphocytes 13.8 % (21.0-51.0); %Monocytes 9.3 % (0.0-10.0); %Neutrophils 73.4 % (42.0-75.0); Mean Corpuscular HGB CONC 31.2 g/dL (32.0-36.0); Mean Corpuscular Hemoglobin 25.2 pg (27.0-31.0); Mean Corpuscular Volume 80.9 fL (78.0-98.0); Mean Platelet Volume 7.4 fL (7.4-10.4); Platelet Count 234 thou/uL (130-400); RBC Distribution Width 15.9 % (11.5-14.5); Red Blood Cell (RBC) Count 3.18 mill/uL (4.70-6.10)
[2018-02-05 04:50] LABS: Anion Gap 10 mmol/L (10-20); BUN (Urea Nitrogen) 16 mg/dL (8.4-25.7); Calc. Creatinine Clearance 59 mL/min (70-130); Calcium 8.9 mg/dL (7.8-10.44); Carbon Dioxide 28 mmol/L (23-31); Chloride 104 mmol/L (98-107); Estimated GFR-MDRD 82; Glucose 95 mg/dL (83-110); Potassium 4.2 mmol/L (3.5-5.1); Sodium 138 mmol/L (136-145)
[2018-02-05] MEDS: Cefepime 1 GM in Sodium Chloride 0.9% 100 ML IVPB SCH ×2 (08:47→20:41)
[2018-02-05] MEDS: predniSONE 20 MG TAB PO SCH (08:49)
[2018-02-05] MEDS: guaiFENesin ER 600 MG TAB PO SCH ×2 (08:49→19:21)
[2018-02-05] MEDS: Donepezil HCl 5 MG TAB PO SCH (19:21)
--- NOTE | 2018-02-05 20:43 | CT ---
CT THORAX NONCONTRAST: Date: 02/05/18 Time: 6:05 p.m. HISTORY: 87-year-old male with rapid development of pulmonary parenchymal opacities on chest radiograph of yes terday. COMPARISON: Chest radiograph of 02/04/18. CT pulmonary angiogram of 07/09/13. FINDINGS: Approximately 20 to 50% of the stomach has herniated into the left medial hemithorax superior to the diaphragm. This appears slightly larger than on the 2013 CT. It accounts for one of the densities men tioned on the report of the chest radiograph. There are streaky plate-like densities at the posterior aspects of the bilateral lower lobes, right greater than left. These were not present in the 2013 CT . Based on their morphology, they are favored to represent subsegmental atelectasis, but continued fo llowup is recommended to rule out pneumonia. No pleural effusion or pneumothorax. Heavy atherosclerot ic calcification of thoracic aorta without aneurysm. Heavy atherosclerotic calcification of LAD, LCX, ramus intermedius, and RCA. No cardiomegaly. Pacemaker leads in the heart. Heavily calcified large r ight paratracheal mediastinal lymph node. Multiple right hilar calcified lymph nodes. Two foci of pul monary calcified granulomas in the anterior segment of right upper lobe. Two faint subcentimeter nonc alcified pulmonary nodules at the lateral aspect of the right mid lung zone, in the lower portion of the right upper lobe, slightly superior to the major fissure, new since the prior CT (axial image 32 of 69, series 3; coronal image 76 of 152, series 400). These are nonspecific, but favored to be infla mmatory/infectious. Other mild ill-defined small pulmonary density in the far posterior aspect of the right middle lobe, nonspecific. IMPRESSION: 1. Moderate sized hiatal hernia. 2. Bilateral posterior lower lobe acute pulmonary densities are favored to represent subsegmenta l atelectasis rather than pneumonia. 3. Nonspecific tiny focal parenchymal densities in the lateral lower portion of the right upper lobe and lateral aspect of right middle lobe. 4. Coronary artery atherosclerotic disease. HALI Savage POS: [facility]
[2018-02-06 05:10] LABS: #Eosinphils 0.3 thou/uL (0.0-0.7); #Lymphocytes 0.9 thou/uL (1.20-3.40); #Monocytes 0.6 thou/uL (0.11-0.59); #Neutrophils 4.5 thou/uL (1.40-6.50); %Basophils 0.3 % (0.0-1.0); %Eosinophils 4.5 % (0.0-10.0); %Neutrophils 72.2 % (42.0-75.0); Mean Corpuscular HGB CONC 30.7 g/dL (32.0-36.0); Mean Corpuscular Hemoglobin 24.9 pg (27.0-31.0); Mean Corpuscular Volume 81.3 fL (78.0-98.0); Mean Platelet Volume 7.4 fL (7.4-10.4); Platelet Count 243 thou/uL (130-400); RBC Distribution Width 15.7 % (11.5-14.5); White Blood Cell (WBC) Count 6.2 thou/uL (4.8-10.8)
[2018-02-06] MEDS: guaiFENesin ER 600 MG TAB PO SCH (07:51)
[2018-02-06] MEDS: predniSONE 20 MG TAB PO SCH (07:51)
[2018-02-06] MEDS: Cefepime 1 GM in Sodium Chloride 0.9% 100 ML IVPB SCH (07:54)
[2018-02-06 11:55] VITALS: BP 147/65; TEMP 97.9
--- NOTE | 2018-02-07 12:45 | EKG ---
Test Reason : ABD PAIN Blood Pressure : / mmHG Vent. Rate : 080 BPM Atrial Rate : 080 BPM P-R Int : 156 ms QRS Dur : 092 ms QT Int : 346 ms P-R-T Axes : 083 -06 037 degrees QTc Int : 399 ms Normal sinus rhythm Possible Inferior infarct , age undetermined Abnormal ECG Baseline Artifact Present Confirmed by ALYCIA ESTES, JOE Lovelace ([id number]), publications editor GURINDER COLE ([id number]) on 02/07/2018 12:45:06 PM Referred By: Confirmed By:JOE TONG MD
== END 2018-02-06 12:34 | disposition home or self-care (01) | DRG 871 ==
LOC: ERS 12:16 → ERHOLD 15:03 → T4-B 17:30
PROVIDERS: ADMIT Specialist; ATTEND Specialist
DX: A41.9 Sepsis, unspecified organism (principal); J69.0 Pneumonitis due to inhalation of food and vomit; J40 Bronchitis, not specified as acute or chronic; K21.9 Gastro-esophageal reflux disease without esophagitis; G30.9 Alzheimer's disease, unspecified; B96.89 Other specified bacterial agents as the cause of diseases classified elsewhere; F02.80 Dementia in other diseases classified elsewhere, unspecified severity, without behavioral disturbance, psychotic disturbance, mood disturbance, and anxiety; I25.10 Atherosclerotic heart disease of native coronary artery without angina pectoris; I10 Essential (primary) hypertension; J44.9 Chronic obstructive pulmonary disease, unspecified; I49.5 Sick sinus syndrome; K44.9 Diaphragmatic hernia without obstruction or gangrene; D64.9 Anemia, unspecified; E78.5 Hyperlipidemia, unspecified; G89.29 Other chronic pain; M54.5 Low back pain; Z87.891 Personal history of nicotine dependence; Z95.1 Presence of aortocoronary bypass graft; Z85.46 Personal history of malignant neoplasm of prostate; Z95.0 Presence of cardiac pacemaker
CPT/HCPCS: 36415; 36416; 51701; 71045; 71046; 71250; 80048; 80053; 82550; 82553; 82607; 82728; 83605; 83690; 83880; 84484; 85025; 85610; 85730; 86850; 86900; 86901; 87040; 87149; 93005; 94640; 94760; 96361; 96374; 96375; G8978-GP-CK; G8979-GP-CI; G8996-GN-CL; G8997-GN-CJ; J0692; J1956; J7050; J7506; J7620